=== PATIENT | male | born 1930 | race Caucasian/White ===

== ENCOUNTER 2019-01-19 10:08 | Observation (INO) | payer OTHER ==
[2019-01-19 11:07] LABS: BASO % 0.9 % (0-2.0); EOS % 1.5 % (0-4.5); HEMATOCRIT 39.7 % (35.4-49); HEMOGLOBIN 13.4 GM/dL (11.7-16.9); LYMPH % 19.1 % (8-40); MCH 30.5 pg (25.7-33.7); MCHC 33.7 g/dl (32.0-35.9); MEAN CELL VOLUME 90.4 fl (80-96); MEAN PLT VOLUME 8.3 fl (7.5-11.1); MONO % 10.4 % (3.8-10.2); NEUT % 68.1 % (42.8-82.8); PLATELET COUNT 237 K/MM3 (134-434); RBC 4.39 M/mm3 (4.00-5.60); RDW 14.1 % (11.9-15.9); WHITE BLOOD COUNT 7.3 K/mm3 (4.0-10.0)
[2019-01-19 11:23] LABS: PH,URINE 5.5 (5.0-8.0); URINE APPEARANCE CLEAR; URINE BILIRUBIN NEGATIVE (NEGATIVE); URINE COLOR YELLOW; URINE GLUCOSE (UA) NEGATIVE (NEGATIVE); URINE KETONE TRACE (NEGATIVE); URINE LEUK ESTERASE NEGATIVE (NEGATIVE); URINE NITRITE NEGATIVE (NEGATIVE); URINE PROTEIN NEGATIVE (NEGATIVE)
[2019-01-19 11:36] LABS: ALBUMIN 3.7 g/dl (3.4-5.0); ALK PHOS 75 U/L (45-117); ANION GAP 8 MMOL/L (8-16); BILIRUBIN,TOTAL 0.5 mg/dL (0.2-1); BLOOD UREA NITROGEN 27.8 mg/dL (7-18); CALCIUM 9.1 mg/dL (8.5-10.1); CHLORIDE 107 mmol/L (98-107); CO2 25 mmol/L (21-32); CREATININE 1.1 mg/dL (0.55-1.3); GLUCOSE,RANDOM 95 mg/dL (74-106); MAGNESIUM 2.1 mg/dL (1.8-2.4); POTASSIUM 3.9 mmol/L (3.5-5.1); SGOT/AST 19 U/L (15-37); SGPT/ALT 9 U/L (13-61); SODIUM 140 mmol/L (136-145); TOT PROT 7.1 g/dl (6.4-8.2)
--- NOTE | 2019-01-19 12:49 | EKG ---
Test Reason : Blood Pressure : / mmHG Vent. Rate : 068 BPM Atrial Rate : 068 BPM P-R Int : 216 ms QRS Dur : 092 ms QT Int : 390 ms P-R-T Axes : 018 -42 003 degrees QTc Int : 414 ms SINUS RHYTHM WITH 1ST DEGREE A-V BLOCK LEFT AXIS DEVIATION MINIMAL VOLTAGE CRITERIA FOR LVH, MAY BE NORMAL VARIANT ABNORMAL ECG NO PREVIOUS ECGS AVAILABLE Confirmed by SEBAS LEUNG, SHANTEL ([id number]) on 01/19/2019 12:49:36 PM Referred By: Confirmed By:SHANTEL MULLEN MD
--- NOTE | 2019-01-19 12:53 | PDOC ---
Documentation entered by Marcy Reynolds SCRIBE, acting as scribe for Loraine Wade MD. Loraine Wade MD: This documentation has been prepared by the Rodolfo moody Sammi, SCRIBE, under my direction and personally reviewed by me in its entirety. I confirm that the documentation accurately reflects all work, treatment, procedures, and medical decision making performed by me. History of Present Illness - General Chief Complaint: Chest Pain Stated Complaint: CHEST PAIN\DIZZINESS Time Seen by Provider: 01/19/19 10:35 History Source: Patient, Family Exam Limitations: Language Barrier - History of Present Illness Initial Comments: 01/19/19 12:34 The patient is an 88 year old thai speaking male, with a PMH of HTN, thyroid disease, and parkinsons, who presents to the emergency department for evaluation of ~3 hours of constant left sided pleuritic chest pain and increased lethargy. The pain began while he was cleaning at home but persisted after he sat down. The patients daughter states the patient was holding the left side of his chest and seemed very sleepy to her. She notes the patient complains the chest pain is worse on exertion, like picking up laundry or walking up a hill. She notes the patient is regularly active during the day. He has not taken anything for the pain as of yet. The patient has never experienced these symptoms before. Denies recent immobility or travel. Denies associated SOB, dizziness, nausea, vomiting, weakness/numbness, headache, abdominal pain, fevers, chills. Patients daughter notes the patients carvedilol-levodopa was increased 2 weeks ago when evaluated by his neurologist. He was also switched to rasagiline from another medication. She notes the patient saw his PCP 2 days ago and was advised to monitor his blood pressure as it was very low. He takes levothyroxine, valsartan, aspirin, rasagiline, and carvedilol- levodopa. PCP: Keely CHAVEZ ([facility]) Neuro: Brenton Past History - Past Medical History Allergies/Adverse Reactions: Allergies Allergy/AdvReac Type Severity Reaction Status Date / Time No Known Allergies Allergy Verified 01/19/19 10:14 COPD: No CHF: No HTN: Yes Thyroid Disease: Yes Other medical history: Parkinson's dis - Surgical History Abdominal Surgery: Yes (inguinal hernia repair) - Psycho Social/Smoking Cessation Hx Smoking History: Never smoked Information on smoking cessation initiated: No Hx Alcohol Use: No Drug/Substance Use Hx: No Review of Systems - Review of Systems Comments:: 01/19/19 12:36 GENERAL/CONSTITUTIONAL: +lethargic. No fever or chills. HEAD, EYES, EARS, NOSE AND THROAT: No change in vision. No ear pain or discharge. No sore throat. GASTROINTESTINAL: No nausea, vomiting, diarrhea or constipation. GENITOURINARY: No dysuria, frequency, or change in urination. CARDIOVASCULAR: +left sided chest pain. No shortness of breath. RESPIRATORY: No cough, wheezing, or hemoptysis. MUSCULOSKELETAL: No joint or muscle swelling or pain. No neck or back pain. SKIN: No rash NEUROLOGIC: No headache, vertigo, loss of consciousness, or change in strength/ sensation. *Physical Exam - Vital Signs Last Vital Signs Temp Pulse Resp BP Pulse Ox 97.8 F 76 19 100/63 96 01/19/19 14:15 01/19/19 14:15 01/19/19 14:15 01/19/19 14:15 01/19/19 10:11 - Physical Exam Comments: 01/19/19 12:36 GENERAL: Awake, alert, and fully oriented, in no acute distress EYES: PERRLA, EOMI, sclera anicteric, conjunctiva clear NECK: Normal ROM, supple, no lymphadenopathy, JVD, or masses LUNGS: Breath sounds equal, clear to auscultation bilaterally. No wheezes, and no crackles HEART: Regular rate and rhythm, normal S1 and S2, no murmurs, rubs or gallops ABDOMEN: Soft, nontender, normoactive bowel sounds. No guarding, no rebound. No masses EXTREMITIES: Normal range of motion, no edema. No clubbing or cyanosis. No cords , erythema, or tenderness NEUROLOGICAL: +masked facies. +soft voice. + left upper extremity resting tremor. Cranial nerves intact, 5/5 strength in all 4 extremities, normal sensation to light touch in all 4 extremities, normal gait SKIN: Warm, Dry, normal turgor, no rashes or lesions noted. Heart Score/ECG Review - History History: Moderately suspicious - Electrocardiogram EKG: Non specific repolarization disturbance - Age Age: >/= 65 - Risk Factors Risk Factors Heart Score: Yes Hx Hypertension Based on the list above the patient has:: 1-2 risk factors - Troponin Troponin: </= normal limit - Score Heart Score - Total: 5 #1 01/19/19 12:46 Twelve-lead EKG was performed and reviewed by me. Sinus rhythm with first- degree AV block. Rate 68. Left axis deviation. No ST elevations. Flipped T waves in lead III and T wave flattening in aVF. No previous EKGs to compare. ED Treatment Course - LABORATORY CBC & Chemistry Diagram: 01/19/19 10:50 01/19/19 10:50 - ADDITIONAL ORDERS Additional order review: Laboratory Results 01/19/19 01/19/19 01/19/19 10:50 10:50 10:50 PTT (Actin FS) 32.7 Sodium Potassium Chloride Carbon Dioxide Anion Gap BUN Creatinine Est GFR (CKD-EPI)AfAm Est GFR (CKD-EPI)NonAf Random Glucose Calcium Magnesium Total Bilirubin AST ALT Alkaline Phosphatase Troponin I B-Natriuretic Peptide 133.3 Total Protein Albumin Urine Color Yellow Urine Appearance Clear Urine pH 5.5 Ur Specific [place] 1.020 Urine Protein Negative Urine Glucose (UA) Negative Urine Ketones Trace H Urine Blood Negative Urine Nitrite Negative Urine Bilirubin Negative Urine Urobilinogen 1.0 Ur Leukocyte Esterase Negative 01/19/19 10:50 PTT (Actin FS) Sodium 140 Potassium 3.9 Chloride 107 Carbon Dioxide 25 Anion Gap 8 BUN 27.8 H Creatinine 1.1 Est GFR (CKD-EPI)AfAm 70.08 Est GFR (CKD-EPI)NonAf 60.46 Random Glucose 95 Calcium 9.1 Magnesium 2.1 Total Bilirubin 0.5 AST 19 ALT 9 L Alkaline Phosphatase 75 Troponin I < 0.02 B-Natriuretic Peptide Total Protein 7.1 Albumin 3.7 Urine Color Urine Appearance Urine pH Ur Specific [place] Urine Protein Urine Glucose (UA) Urine Ketones Urine Blood Urine Nitrite Urine Bilirubin Urine Urobilinogen Ur Leukocyte Esterase 01/19/19 10:50 RBC 4.39 MCV 90.4 MCHC 33.7 RDW 14.1 MPV 8.3 Neutrophils % 68.1 Lymphocytes % 19.1 Monocytes % 10.4 H Eosinophils % 1.5 Basophils % 0.9 - RADIOLOGY Radiology Studies Ordered: Category Date Time Status CHEST CTA [CT] Stat CT Scan 01/19/19 12:34 Completed CHEST X-RAY PORTABLE* [RAD] Stat Radiology 01/19/19 10:40 Completed Medical Decision Making - Medical Decision Making 01/19/19 12:47 88-year-old male with a history of hypertension, hypothyroidism, Parkinson's disease presents emergency department with 3 hours of left-sided pleuritic chest pain associated with lethargy. Differential includes ACS versus PE versus autonomic dysfunction versus musculoskeletal pain Heart score is 5. First troponin is negative, however due to moderate risk, patient will need telemetry observation. Will obtain CTA to rule out PE. 01/19/19 15:02 CTA negative for PE. Patient given full dose of aspirin. Will admit for ACS rule out. Case discussed with nurse practitioner Mirela. Patient accepted for admission to Dr. Segal's service. Case discussed in detail with admitting physician including history, physical exam and ancillary studies. Admitting physician has assumed care for the patient, will follow all pending diagnostics and will complete the evaluation and treatment. Discharge - Discharge Information Problems reviewed: Yes Clinical Impression/Diagnosis: Chest pain Condition: Stable - Follow up/Referral Referrals: Kathie Oliva FNP [Primary Care Provider] - - Patient Discharge Instructions - Post Discharge Activity
[2019-01-19] MEDS ORDERED: ASPIRIN 325 MG TABLET PO ONE (14:43)
[2019-01-19] MEDS ORDERED: ASPIRIN 325 MG ENTERIC COATED TABLET (FP) ONE (15:39)
--- NOTE | 2019-01-19 16:23 | HP ---
CHIEF COMPLAINT: left sided chest pain, persistent PCP: Keely CHAVEZ ([facility]) Neuro: Brenton HISTORY OF PRESENT ILLNESS: Patient is an 88 year old lithuanian speaking male from [place] who is accompanied by his daughter for persistent left sided chest pain. Per patient and daughter, patient comes to us for evaluation of persistent left sided pleurtic chest pain and increased lethargy. Patient was holding the left side of his chest today and complained to her that when he takes in a deep breath, the pain worsens. He is unable to fully take in a deep breath without feeling chest pressure. Chest pain is worse with any exertion and feels like "stabbing pain". At baseline, patient ambulates with a steady gait, has had no falls at home and denies trauma. He denies ever experiencing these pains before. He denies any recent immobility or travel. Denies shortness of breath, nausea or vomiting. Patient has Parkinsons disease and is under the care of a neurologist, patient' s carvedilol-levodopa was increased 2 weeks ago when evaluated by his neurologist. He was also switched to rasagiline. ER course was notable for: (1) negative CTA - no emboli, bilateral hilar adenopathy (2) negative troponin x 1 (3) HTN, thyroid disease, and parkinsons Recent Travel: [place] one year ago, no recent travel since PAST MEDICAL HISTORY: HTN, thyroid disease, and parkinsons Social History: Smoking: denies Alcohol: denies Drugs: denies Allergies No Known Allergies Allergy (Verified 01/19/19 10:14) PHYSICAL EXAMINATION Vital Signs - 24 hr 01/19/19 01/19/19 10:11 14:15 Temperature 97.6 F 97.8 F Pulse Rate 70 Pulse Rate [ 76 Apical] Respiratory 19 19 Rate Blood Pressure 90/48 L Blood Pressure 100/63 [Right Arm] O2 Sat by Pulse 96 Oximetry (%) GENERAL: Awake, alert, and fully oriented, in no acute distress. lithuanian speaking HEAD: Normal with no signs of trauma. EYES: Pupils equal, round and reactive to light, extraocular movements intact, sclera anicteric, conjunctiva clear. No lid lag. EARS, NOSE, THROAT: Ears normal, nares patent, oropharynx clear without exudates. Moist mucous membranes. NECK: Normal range of motion, supple without lymphadenopathy, JVD, or masses. LUNGS: mild wheezing of right lower lobe, rest of lung clear. left lung clear throughout lung field. HEART: Regular rate and rhythm ABDOMEN: Soft, nontender, not distended, normoactive bowel sounds, no guarding, no rebound, no masses. No hepatomegaly or splenomegaly. MUSCULOSKELETAL: Normal range of motion at all joints. No bony deformities or tenderness. No CVA tenderness. UPPER EXTREMITIES: No peripheral edema. resting tremor of left upper arm LOWER EXTREMITIES: No peripheral edema. NEUROLOGICAL: Normal speech. Normal gait. PSYCHIATRIC: Cooperative. Good eye contact. Appropriate mood and affect. SKIN: Warm, dry, normal turgor, no rashes or lesions noted, normal capillary refill. Laboratory Results - last 24 hr 01/19/19 01/19/19 01/19/19 10:50 10:50 10:50 WBC RBC Hgb Hct MCV MCH MCHC RDW Plt Count MPV Absolute Neuts (auto) Neutrophils % Lymphocytes % Monocytes % Eosinophils % Basophils % Nucleated RBC % PTT (Actin FS) Sodium 140 Potassium 3.9 Chloride 107 Carbon Dioxide 25 Anion Gap 8 BUN 27.8 H Creatinine 1.1 Est GFR (CKD-EPI)AfAm 70.08 Est GFR (CKD-EPI)NonAf 60.46 Random Glucose 95 Calcium 9.1 Magnesium 2.1 Total Bilirubin 0.5 AST 19 ALT 9 L Alkaline Phosphatase 75 Troponin I < 0.02 B-Natriuretic Peptide 133.3 Total Protein 7.1 Albumin 3.7 Urine Color Yellow Urine Appearance Clear Urine pH 5.5 Ur Specific [place] 1.020 Urine Protein Negative Urine Glucose (UA) Negative Urine Ketones Trace H Urine Blood Negative Urine Nitrite Negative Urine Bilirubin Negative Urine Urobilinogen 1.0 Ur Leukocyte Esterase Negative 01/19/19 01/19/19 10:50 10:50 WBC 7.3 RBC 4.39 Hgb 13.4 Hct 39.7 MCV 90.4 MCH 30.5 MCHC 33.7 RDW 14.1 Plt Count 237 MPV 8.3 Absolute Neuts (auto) 5.0 Neutrophils % 68.1 Lymphocytes % 19.1 Monocytes % 10.4 H Eosinophils % 1.5 Basophils % 0.9 Nucleated RBC % 0 PTT (Actin FS) 32.7 Sodium Potassium Chloride Carbon Dioxide Anion Gap BUN Creatinine Est GFR (CKD-EPI)AfAm Est GFR (CKD-EPI)NonAf Random Glucose Calcium Magnesium Total Bilirubin AST ALT Alkaline Phosphatase Troponin I B-Natriuretic Peptide Total Protein Albumin Urine Color Urine Appearance Urine pH Ur Specific [place] Urine Protein Urine Glucose (UA) Urine Ketones Urine Blood Urine Nitrite Urine Bilirubin Urine Urobilinogen Ur Leukocyte Esterase ASSESSMENT/PLAN: Family Medical History Family History: Unable to Obtain, Denies Problem List - Problem (1) Chest pain Assessment/Plan: rule out acs trend troponins monitor on tele asa 324 mg given in ED will continue asa 81mg cardiology consulted Code(s): R07.9 - CHEST PAIN, UNSPECIFIED (2) Shortness of breath Assessment/Plan: episode of shortness of breath at home, now resolved mild wheezing of right lower lobe CTA negative for PE hilar adenopathy noted, pulmonary consulted Code(s): R06.02 - SHORTNESS OF BREATH (3) Hypertension Assessment/Plan: continue home medications with parameters hold if systolic <100, heart rate less than 60 perform orthostatics Code(s): I10 - ESSENTIAL (PRIMARY) HYPERTENSION (4) Parkinsons disease Assessment/Plan: continue home sinemet TID Code(s): G20 - PARKINSON'S DISEASE (5) DVT prophylaxis Assessment/Plan: fen PO adequate monitor electrolytes physical therapy for report of weakness at home full code LOS likely <48 hrs, defer a/c Code(s): Z29.9 - ENCOUNTER FOR PROPHYLACTIC MEASURES, UNSPECIFIED Visit type - Emergency Visit Emergency Visit: Yes ED Registration Date: 01/19/19 Care time: The patient presented to the Emergency Department on the above date and was hospitalized for further evaluation of their emergent condition. - New Patient This patient is new to me today: Yes Date on this admission: 01/19/19 - Critical Care Critical Care patient: No
[2019-01-19 17:25] VITALS: BMI 28.1
[2019-01-19] MEDS ORDERED: PT OWN MED DRAWER 7, Y5N ONE (20:50)
[2019-01-19] MEDS: CARBIDOPA/LEVODOPA 25/250 TABLET (FP) PO SCH (21:02)
[2019-01-19] MEDS ORDERED: CARBIDOPA LEVODOPA PO SCH (22:00)
[2019-01-20 06:31] VITALS: PULSE 61; TEMP 98.7
[2019-01-20] MEDS ORDERED: LEVOTHYROXINE NA 100 MCG TABLET (FP) PO SCH (07:00)
[2019-01-20 08:02] LABS: ALBUMIN 3.3 g/dl (3.4-5.0); BILIRUBIN,TOTAL 0.7 mg/dL (0.2-1); BLOOD UREA NITROGEN 26.2 mg/dL (7-18); CALCIUM 8.9 mg/dL (8.5-10.1); MAGNESIUM 2.2 mg/dL (1.8-2.4); TOT PROT 6.4 g/dl (6.4-8.2)
[2019-01-20] MEDS: CARBIDOPA/LEVODOPA 25/250 TABLET (FP) PO SCH ×2 (08:19→12:47)
[2019-01-20 09:17] VITALS: BP 110/58
[2019-01-20] MEDS ORDERED: PT OWN MED DRAWER 7, Y5N ONE (09:19)
[2019-01-20] MEDS ORDERED: ASPIRIN COATED 81 MG TABLET.EC PO SCH (10:00)
[2019-01-20] MEDS ORDERED: RASAGILINE MESYLATE 1 MG PO SCH (10:00)
[2019-01-20] MEDS ORDERED: LOSARTAN POTASSIUM 50 MG TABLET (FP) PO SCH (10:00)
--- NOTE | 2019-01-20 10:04 | CON.CARD ---
Consult Consult Specialty:: Cardiology Referred by:: Ely Reason for Consultation:: chest pain - History of Present Illness Chief Complaint: chest pain History of Present Illness: 88 year old cymraes speaking male, with a PMH of HTN, thyroid disease, and parkinsons, who presents to the emergency department for evaluation of ~3 hours of constant left sided pleuritic chest pain and increased lethargy. The pain was left sided nonexertional, pleuritic and without associated symptoms. Troponin negative. CTA negative. Baseline exercise tolerance is poor. - History Source History Provided By: Patient, Medical Record - Alcohol/Substance Use Hx Alcohol Use: No - Smoking History Smoking history: Never smoked Have you smoked in the past 12 months: No Home Medications - Allergies Allergies/Adverse Reactions: Allergies Allergy/AdvReac Type Severity Reaction Status Date / Time No Known Allergies Allergy Verified 01/19/19 10:14 - Home Medications Home Medications: Ambulatory Orders Aspirin 81 mg PO DAILY 01/19/19 Carbidopa-Levodopa 25-250 Tab 25 - 250 mg PO TID 01/19/19 Levothyroxine [Synthroid -] 100 mg PO DAILY 01/19/19 Losartan Potassium 50 mg PO DAILY 01/19/19 Rasagiline Mesylate 1 mg PO DAILY 01/19/19 Vital Signs: Vital Signs Temperature 98.7 F 01/20/19 09:16 Pulse Rate 61 01/20/19 09:16 Respiratory Rate 20 01/20/19 09:16 Blood Pressure 110/58 L 01/20/19 09:16 O2 Sat by Pulse Oximetry (%) 94 L 01/20/19 09:00 Constitutional: Yes: No Distress, Calm Eyes: Yes: Conjunctiva Clear, EOM Intact HENT: Yes: Atraumatic, Normocephalic Neck: Yes: Trachea Midline Respiratory: Yes: CTA Bilaterally Gastrointestinal: Yes: Normal Bowel Sounds, Soft Cardiovascular: Yes: Regular Rate and Rhythm JVD: No Carotid Bruit: No PMI: Non-Displaced Heart Sounds: Yes: S1, S2 Murmur: Yes: Systolic Murmur, Grade 2 Extremities: Yes: WNL Edema: No Peripheral Pulses WNL: Yes - Other Data Labs, Other Data: CBC, BMP 01/20/19 05:55 Troponin, BNP 01/19/19 01/19/19 01/19/19 10:50 10:50 19:15 Troponin I < 0.02 < 0.02 B-Natriuretic Peptide 133.3 01/20/19 00:01 Troponin I < 0.02 B-Natriuretic Peptide Troponin, BNP 01/19/19 01/19/19 01/19/19 10:50 10:50 19:15 Troponin I < 0.02 < 0.02 B-Natriuretic Peptide 133.3 01/20/19 00:01 Troponin I < 0.02 B-Natriuretic Peptide Imaging - Results Cat Scan: Report Reviewed (no pe) EKG: Report Reviewed (nsr lad lvh) Assessment/Plan 88 year old cymraes speaking male, with a PMH of HTN, thyroid disease, and parkinsons, who presents to the emergency department for evaluation of ~3 hours of constant left sided pleuritic chest pain and increased lethargy. Troponin negative. CTA negative. Plan: -no need for inpatient ischemia workup -pain is atypical and he is a poor cath candidate -echo -observe 24 hrs and dc for op fu.
--- NOTE | 2019-01-20 13:17 | CON.PULM ---
Consult Consult Specialty:: PULM/CCM Referred by:: Hospitalist Reason for Consultation:: SOB - History of Present Illness Chief Complaint: SOB History of Present Illness: 88 M, remote smoking history, HTN, thyroid disease, and parkinsons. Admitted via the ER due to 3 hours of left sided pleuritic chest discomfort and SOB. Apparently he was also noted to be lethargic. No travel history or sick contacts. Minimal dry cough. No hemoptysis or night sweats. CTA: no PE emphysematous changes / non-specific mediastianal adenopathy. / chronic appearing changes at the bases Left > Right. Patient has not had a CT chest here previously at [facility] and he does not recall having a CT as an outpatient. 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 No clear occupational exposure history. There is no history that is consistent with [facility]. - History Source History Provided By: Patient, Medical Record Limitations to Obtaining History: Language Barrier - Past Medical History Pulmonary: No: Asthma, Bronchitis, Cancer, COPD, O2 Dependent, Pneumonia, Previously Intubated, Pulmonary Embolus, Pulmonary Fibrosis, Sleep Apnea - Alcohol/Substance Use Hx Alcohol Use: No - Smoking History Smoking history: Never smoked Have you smoked in the past 12 months: No Home Medications - Allergies Allergies/Adverse Reactions: Allergies Allergy/AdvReac Type Severity Reaction Status Date / Time No Known Allergies Allergy Verified 01/19/19 10:14 - Home Medications Home Medications: Ambulatory Orders Aspirin 81 mg PO DAILY 01/19/19 Carbidopa-Levodopa 25-250 Tab 25 - 250 mg PO TID 01/19/19 Levothyroxine [Synthroid -] 100 mg PO DAILY 01/19/19 Losartan Potassium 50 mg PO DAILY 01/19/19 Rasagiline Mesylate 1 mg PO DAILY 01/19/19 Review of Systems - Review of Systems Constitutional: reports: Lethargy, Malaise. denies: Chills, Fever, Night Sweats Eyes: reports: No Symptoms HENT: reports: No Symptoms Neck: reports: No Symptoms Cardiovascular: reports: Shortness of Breath. denies: Chest Pain, Edema, Palpitations Respiratory: reports: Cough, Exercise Intolerance, SOB, SOB on Exertion. denies : Hemoptysis, Orthopnea, PND, Snoring, Wheezing Gastrointestinal: reports: No Symptoms Genitourinary: reports: No Symptoms Breasts: reports: No Symptoms Reported Musculoskeletal: reports: No Symptoms Integumentary: reports: No Symptoms Neurological: reports: Confusion Endocrine: reports: No Symptoms Hematology/Lymphatic: reports: No Symptoms Psychiatric: reports: No Symptoms Physical Exam Vital Sings: Vital Signs Temperature 98.7 F 01/20/19 09:16 Pulse Rate 61 01/20/19 09:16 Respiratory Rate 20 01/20/19 09:16 Blood Pressure 110/58 L 01/20/19 09:16 O2 Sat by Pulse Oximetry (%) 94 L 01/20/19 09:00 Constitutional: Yes: No Distress, Calm Eyes: Yes: Conjunctiva Clear, EOM Intact HENT: Yes: Atraumatic, Normocephalic Neck: Yes: Supple, Trachea Midline Cardiovascular: Yes: Regular Rate and Rhythm Respiratory: Yes: Diminished. No: Accessory Muscle Use, Poor Air Entry, Rales, Rhonchi, SOB, SOB on Exertion, Stridor, Tachypnea, Wheezes ...Inspection: Yes: WNL ...Clubbing: No Gastrointestinal: Yes: Normal Bowel Sounds, Soft Renal/: Yes: WNL Musculoskeletal: Yes: WNL Extremities: Yes: WNL Edema: No Peripheral Pulses WNL: Yes Integumentary: Yes: WNL Neurological: Yes: WNL, Alert, Oriented ...Motor Strength: WNL Psychiatric: Yes: WNL, Alert, Oriented Labs: CBC, BMP 01/20/19 00:01 01/20/19 05:55 Imaging - Results Chest X-ray: Report Reviewed, Image Reviewed Cat Scan: Report Reviewed, Image Reviewed Problem List - Problems (1) Mediastinal lymphadenopathy Code(s): R59.0 - LOCALIZED ENLARGED LYMPH NODES (2) Chest pain Code(s): R07.9 - CHEST PAIN, UNSPECIFIED (3) Hypertension Code(s): I10 - ESSENTIAL (PRIMARY) HYPERTENSION (4) Parkinsons disease Code(s): G20 - PARKINSON'S DISEASE (5) Shortness of breath Code(s): R06.02 - SHORTNESS OF BREATH (6) Emphysema lung Code(s): J43.9 - EMPHYSEMA, UNSPECIFIED (7) Scarring of lung Code(s): J98.4 - OTHER DISORDERS OF LUNG Assessment/Plan Cardiac workup per Cardiology O2 as needed Monitor off ABX Outpatient PFTs Can follow non-specific mediastinal adenopathy as an outpatient. Would first check if he had previous imaging of the chest with his outpatient doctors No smoking Will follow Thank you. Dr Cazares
--- NOTE | 2019-01-20 15:17 | ECHO ---
Name: MARINAANDREW FINE Exam:Adult Echocardiogram Study Date: 01/20/2019 01:50 PM Age: 88 yrs Reason For Study: Chest pain Height: 62 in Weight: 154 lb BSA: 1.7 m2 MMode/2D Measurements & Calculations IVSd: 1.1 cm Ao root diam: 3.2 cm LVIDd: 3.6 cm LA dimension: 2.8 cm LVIDs: 2.5 cm LVPWd: 1.2 cm LVPWs: 1.3 cm EDV(Teich): 55.9 ml ESV(Teich): 21.4 ml LVOT diam: 1.8 cm Doppler Measurements & Calculations MV E max dada: 61.2 cm/sec Ao V2 max: 148.0 cm/sec MV A max dada: 120.9 cm/sec Ao max P.8 mmHg MV E/A: 0.51 MV dec time: 0.14 sec JOHN(V,D): 1.8 cm2 LV V1 max P.0 mmHg TR max dada: 247.7 cm/sec LV V1 max: 99.7 cm/sec TR max P.9 mmHg PA V2 max: 98.9 cm/sec Med Peak E' Dada: 5.7 cm/sec PA max P.9 mmHg Med E/e': 10.7 Lat Peak E' Dada: 7.3 cm/sec Lat E/e': 8.3 Procedure A complete two-dimensional transthoracic echocardiogram was performed (2D, M-mode, Doppler and color flow Doppler). Left Ventricle The left ventricular size, thickness and function are normal. The left ventricular ejection fraction is normal. Ejection Fraction = 60-65%. The left ventricular wall motion is normal. Right Ventricle The right ventricle is normal in size and function. Atria Normal left and right atrial size and function. Mitral Valve There is no mitral regurgitation noted. Tricuspid Valve There is trace tricuspid regurgitation. There was insufficient TR detected to calculate RV systolic p ressure. Aortic Valve The aortic valve is trileaflet. No hemodynamically significant valvular aortic stenosis. No aortic regurgitation is present. Pulmonic Valve There is no pulmonic valvular regurgitation. Great Vessels The aortic root is normal size. Pericardium/Pleura There is no pericardial effusion. Interpretation Summary The left ventricular size, thickness and function are normal The right ventricle is normal in size and function. There is trace tricuspid regurgitation. MD Emigdio García 01/20/2019 03:17 PM
--- NOTE | 2019-01-20 15:58 | DS ---
Physical Exam: SUBJECTIVE: Patient seen and examined OBJECTIVE: Vital Signs Period Temp Pulse Resp BP Sys/Mckeon Pulse Ox Last 24 Hr 98 F-98.7 F 60-66 20-20 99-135/52-63 94-98 PHYSICAL EXAM GENERAL: The patient is awake, alert, and fully oriented, in no acute distress. HEAD: Normal with no signs of trauma. EYES: PERRL, extraocular movements intact, sclera anicteric, conjunctiva clear. ENT: Ears normal, nares patent, oropharynx clear without exudates, moist mucous membranes. NECK: Trachea midline, full range of motion, supple. LUNGS: Breath sounds equal, clear to auscultation bilaterally, no wheezes, no crackles, no accessory muscle use. HEART: Regular rate and rhythm, S1, S2 without murmur, rub or gallop. ABDOMEN: Soft, nontender, nondistended, normoactive bowel sounds, no guarding, no rebound, no hepatosplenomegaly, no masses. EXTREMITIES: 2+ pulses, warm, well-perfused, no edema. NEUROLOGICAL: Cranial nerves II through XII grossly intact. Normal speech, gait not observed. PSYCH: Normal mood, normal affect. SKIN: Warm, dry, normal turgor, no rashes or lesions noted. LABS Laboratory Results - last 24 hr 01/19/19 01/20/19 01/20/19 19:15 00:01 00:01 WBC Cancelled Corrected WBC (auto) Cancelled RBC Cancelled Hgb Cancelled Hct Cancelled MCV Cancelled MCH Cancelled MCHC Cancelled RDW Cancelled Plt Count Cancelled MPV Cancelled Absolute Neuts (auto) Cancelled Neutrophils % Cancelled Lymphocytes % Cancelled Monocytes % Cancelled Eosinophils % Cancelled Basophils % Cancelled Nucleated RBC % Cancelled Platelet Estimate Cancelled Platelet Comment Cancelled Sodium Potassium Chloride Carbon Dioxide Anion Gap BUN Creatinine Est GFR (CKD-EPI)AfAm Est GFR (CKD-EPI)NonAf Random Glucose Hemoglobin A1c % Calcium Magnesium Total Bilirubin AST ALT Alkaline Phosphatase Troponin I < 0.02 < 0.02 Total Protein Albumin Triglycerides Cholesterol Total LDL Cholesterol HDL Cholesterol TSH 01/20/19 01/20/19 05:55 05:55 WBC Corrected WBC (auto) RBC Hgb Hct MCV MCH MCHC RDW Plt Count MPV Absolute Neuts (auto) Neutrophils % Lymphocytes % Monocytes % Eosinophils % Basophils % Nucleated RBC % Platelet Estimate Platelet Comment Sodium 142 Potassium 4.0 Chloride 107 Carbon Dioxide 28 Anion Gap 7 L BUN 26.2 H Creatinine 1.0 Est GFR (CKD-EPI)AfAm 78.64 Est GFR (CKD-EPI)NonAf 67.85 Random Glucose 83 Hemoglobin A1c % 5.2 Calcium 8.9 Magnesium 2.2 Total Bilirubin 0.7 AST 15 ALT 9 L Alkaline Phosphatase 65 Troponin I Total Protein 6.4 Albumin 3.3 L Triglycerides 93 Cholesterol 185 Total LDL Cholesterol 118 H HDL Cholesterol 56 TSH 2.16 HOSPITAL COURSE: Date of Admission:01/19/19 Date of Discharge: 01/20/19 Discharge Summary Problems reviewed: Yes Reason For Visit: CHEST PAIN Current Active Problems Chest pain (Acute) DVT prophylaxis (Acute) Emphysema lung (Acute) Hypertension (Acute) Mediastinal lymphadenopathy (Acute) Parkinsons disease (Acute) Scarring of lung (Acute) Shortness of breath (Acute) Condition: Stable - Instructions Diet, Activity, Other Instructions: Mr. Dany Pace You were admitted for chest pain and the workup is negative. We will be sending you home today. We found that you have a non-specific mediastinal adenopathy that we saw in your Chest CT. Please take the imaging with you and show it to your primary care doctor. You can also see Dr. Berman or another librarian specialist as an outpatient. Thank you for allowing us to care for you. Continue all the medications as you have been taking at home. Questions? Call me with questions Tammy Herrera NP [facility] [phone] Referrals: Kathie Oliva FNP [Primary Care Provider] - Disposition: HOME - Home Medications Comprehensive Discharge Medication List: Ambulatory Orders Aspirin 81 mg PO DAILY 01/19/19 Carbidopa-Levodopa 25-250 Tab 25 - 250 mg PO TID 01/19/19 Levothyroxine [Synthroid -] 100 mg PO DAILY 01/19/19 Losartan Potassium 50 mg PO DAILY 01/19/19 Rasagiline Mesylate 1 mg PO DAILY 01/19/19 Problem List - Problems (1) Chest pain Code(s): R07.9 - CHEST PAIN, UNSPECIFIED (2) Shortness of breath Code(s): R06.02 - SHORTNESS OF BREATH (3) Hypertension Code(s): I10 - ESSENTIAL (PRIMARY) HYPERTENSION (4) Parkinsons disease Code(s): G20 - PARKINSON'S DISEASE (5) DVT prophylaxis Code(s): Z29.9 - ENCOUNTER FOR PROPHYLACTIC MEASURES, UNSPECIFIED
== END 2019-01-20 16:29 | disposition home or self-care (01) ==
LOC: JER 10:08 → JERBED 12:34 → J4W 16:21
PROVIDERS: ADMIT Internal Medicine; ATTEND Nurse Practitioner Family
DX: R07.89 Other chest pain (principal); R06.02 Shortness of breath; I10 Essential (primary) hypertension; I44.0 Atrioventricular block, first degree; G20 Parkinson's disease; E03.9 Hypothyroidism, unspecified; Z29.8 Encounter for other specified prophylactic measures; R59.0 Localized enlarged lymph nodes; J43.9 Emphysema, unspecified; J98.4 Other disorders of lung; Z79.82 Long term (current) use of aspirin
CPT/HCPCS: 36415; 71045-TC-FY; 71275-TC; 80053; 80061; 81003; 83036; 83721; 83735; 83880; 84443; 84484; 85025; 85730; 87086; 93005; 93010; 93306-TC; 97116-GP; 97161-GP; 99285-25; G0378

== ENCOUNTER 2020-12-26 19:50 | Emergency (ER) | payer OTHER ==
[2020-12-26 20:13] VITALS: BMI 29.7
[2020-12-26 21:43] LABS: BASO % 0.5 % (0-2.0); EOS % 1.2 % (0-4.5); HEMATOCRIT 37.5 % (35.4-49); HEMOGLOBIN 12.9 GM/dL (11.7-16.9); LYMPH % 31.5 % (8-40); MCH 31.8 pg (25.7-33.7); MCHC 34.4 g/dl (32.0-35.9); MEAN CELL VOLUME 92.3 fl (80-96); MEAN PLT VOLUME 7.1 fl (7.5-11.1); MONO % 11.1 % (3.8-10.2); NEUT % 55.7 % (42.8-82.8); PLATELET COUNT 258 10^3/uL (134-434); RBC 4.06 M/mm3 (4.00-5.60); RDW 15.3 % (11.9-15.9); WHITE BLOOD COUNT 7.1 K/mm3 (4.0-10.0)
[2020-12-26 21:51] LABS: INR 0.99 (0.83-1.09); PROTHROMBIN TIME (PATIENT) 12.2 SEC (9.7-13.0)
[2020-12-26 21:54] LABS: ACTIVATED PTT 26.7 SECONDS (25.2-36.5)
[2020-12-26 22:07] LABS: CHLORIDE 111 mmol/L (98-107); SODIUM 141 mmol/L (136-145)
[2020-12-26 22:09] LABS: ALBUMIN 3.5 g/dl (3.4-5.0); ANION GAP 6 MMOL/L (8-16); BLOOD UREA NITROGEN 36.3 mg/dL (7-18); CALCIUM 8.7 mg/dL (8.5-10.1); CO2 24 mmol/L (21-32); GLUCOSE,RANDOM 93 mg/dL (74-106)
[2020-12-26 22:12] LABS: SGOT/AST 13 U/L (15-37); SGPT/ALT 14 U/L (13-61)
[2020-12-26 22:14] LABS: BILIRUBIN,TOTAL 0.5 mg/dL (0.2-1); TOT PROT 6.9 g/dl (6.4-8.2)
[2020-12-26 22:15] LABS: ALK PHOS 49 U/L (45-117)
[2020-12-26 22:17] LABS: N-TERMINAL BNP 146.2 pg/ml (5-450)
[2020-12-27 00:35] VITALS: BP 154/70; PULSE 63; TEMP 97.9
== END 2020-12-27 00:34 | disposition home or self-care (01) ==
LOC: JER 19:50
DX: R06.00 Dyspnea, unspecified (principal)
CPT/HCPCS: 36415; 71045-TC-FY; 71275-TC; 80053; 82550; 83605; 83880; 84484; 85025; 85610; 85730; 87040; 87804; 93005; 93010; 99285-25; C9803; Q9967; U0003; U0005

== ENCOUNTER 2021-03-27 21:21 | Inpatient (IN) | payer OTHER ==
[2021-03-28] MEDS ORDERED: DEXAMETHASONE SOD PHOSPHATE 10 MG/1 ML VIAL IVPUSH ONE (00:50)
[2021-03-28] MEDS ORDERED: ALBUTEROL SO4 2.5/IPRATROPIUM 0.5 INH SOL 3 ML VIAL.NEB. NEB ONE (01:41)
[2021-03-28] MEDS ORDERED: DEXAMETHASONE SOD PHOSPHATE 10 MG/1 ML VIAL ONE (01:41)
[2021-03-28] MEDS: ALBUTEROL SO4 2.5/IPRATROPIUM 0.5 INH SOL 3 ML VIAL.NEB. NEB SCH ×3 (02:02→02:43)
[2021-03-28 02:09] LABS: HEMATOCRIT 43.4 % (35.4-49); HEMOGLOBIN 14.6 GM/dL (11.7-16.9); MCH 31.1 pg (25.7-33.7); MCHC 33.6 g/dl (32.0-35.9); MEAN CELL VOLUME 92.5 fl (80-96); MEAN PLT VOLUME 8.1 fl (7.5-11.1); PLATELET COUNT 233 10^3/uL (134-434); RDW 14.8 % (11.9-15.9); WHITE BLOOD COUNT 9.3 K/mm3 (4.0-10.0)
[2021-03-28 02:14] LABS: INR 1.15 (0.83-1.09); PROTHROMBIN TIME (PATIENT) 13.5 SEC (9.7-13.0)
[2021-03-28 02:14] LABS: VENOUS BASE EXCESS -7.6 mmol/L (-2-2); VENOUS O2 SATURATION 89.5 % (70-80); VENOUS PCO2 24.6 mmHg (38-52); VENOUS PH 7.406 (7.310-7.410)
[2021-03-28 02:17] LABS: ACTIVATED PTT 30.8 SECONDS (25.2-36.5)
[2021-03-28 02:29] LABS: ALBUMIN 3.1 g/dl (3.4-5.0); BLOOD UREA NITROGEN 40.5 mg/dL (7-18)
[2021-03-28 02:31] LABS: BILIRUBIN,DIRECT 0.3 mg/dL (0.0-0.2)
[2021-03-28 02:32] LABS: CREATININE 1.1 mg/dL (0.55-1.3); LDH 829 U/L (87-246)
[2021-03-28 02:34] LABS: BILIRUBIN,TOTAL 0.8 mg/dL (0.2-1); TOT PROT 7.3 g/dl (6.4-8.2)
[2021-03-28 02:37] LABS: N-TERMINAL BNP 337.3 pg/ml (5-450)
[2021-03-28] MEDS ORDERED: morphine CARPU-JECT 2 MG/1 ML DISP.SYRIN IVPUSH PRN (03:27)
[2021-03-28] MEDS ORDERED: morphine CARPU-JECT 2 MG/1 ML DISP.SYRIN IVPUSH ONE (03:27)
[2021-03-28] MEDS ORDERED: DEXMEDETOMIDINE IN 0.9 % NACL 400 MCG/100 ML VIAL IVPB SCH (03:30)
[2021-03-28 03:54] LABS: LACTIC ACID 2.2 mmol/L (0.4-2.0)
[2021-03-28] MEDS ORDERED: MIDAZOLAM HCL 5 MG/1 ML Single Dose Vial IVPUSH ONE ×3 (04:08→05:48)
[2021-03-28] MEDS ORDERED: MIDAZOLAM HCL 2 MG/2 ML SINGLE DOSE VIAL ONE ×2 (04:10→04:37)
[2021-03-28] MEDS ORDERED: RAPID SEQUENCE INTUBATION KIT NR ONE (04:18)
[2021-03-28] MEDS ORDERED: SUCCINYLCHOLINE CHLORIDE 200 MG/10 ML VIAL IVPUSH ONE (04:19)
[2021-03-28] MEDS ORDERED: DEXAMETHASONE SOD PHOSPHATE 4 MG/1 ML VIAL IVPUSH ONE (04:25)
[2021-03-28] MEDS ORDERED: DEXAMETHASONE SOD PHOSPHATE 20 MG/5 ML VIAL IVPB SCH (04:30)
[2021-03-28] MEDS ORDERED: MIDAZOLAM IN 0.9 % SOD.CHLORID 1 MG/1 ML PLAST..BAG ONE (04:37)
[2021-03-28] MEDS: MIDAZOLAM IN 0.9 % SOD.CHLORID 100 MG/100 ML PLAST..BAG IVPB SCH ×2 (05:10→19:30)
[2021-03-28] MEDS ORDERED: SUCCINYLCHOLINE CHLORIDE 200 MG/10 ML VIAL ONE (05:15)
[2021-03-28] MEDS ORDERED: SODIUM CHLORIDE 0.9% 500 ML INFUS.BAG IV ONE (05:46)
[2021-03-28] MEDS ORDERED: ROCURONIUM BROMIDE 50 MG/5 ML VIAL IV ONE (05:52)
[2021-03-28] MEDS ORDERED: FENTANYL NS IVPB 500 MCG/100 ML BAG IVPB ONE (05:59)
[2021-03-28] MEDS ORDERED: ROCURONIUM BROMIDE 100 MG in DEXTROSE 5%-WATER - 90 ML IVPB SCH (06:00)
[2021-03-28] MEDS ORDERED: VECURONIUM BROMIDE 100 MG/100 ML BAG IVPB SCH (06:00)
[2021-03-28] MEDS: CARBIDOPA/LEVODOPA 25/250 TABLET (FP) PO SCH ×3 (07:00→21:55)
[2021-03-28] MEDS: ROCURONIUM BROMIDE 500 MG/300 ML BAG IVPB SCH (07:00)
[2021-03-28 07:46] LABS: HEMATOCRIT 43.5 % (35.4-49); MCH 30.7 pg (25.7-33.7); MCHC 32.2 g/dl (32.0-35.9); MEAN CELL VOLUME 95.6 fl (80-96); MEAN PLT VOLUME 8.9 fl (7.5-11.1); PLATELET COUNT 255 10^3/uL (134-434); RBC 4.55 M/mm3 (4.00-5.60); WHITE BLOOD COUNT 11.6 K/mm3 (4.0-10.0)
[2021-03-28 07:56] LABS: ARTERIAL BLD GAS O2 SATURATION 89.8 % (95-98); ARTERIAL BLOOD GAS PO2 73.9 mmHg (80-100)
[2021-03-28 07:58] LABS: ALLENS TEST POSITIVE
[2021-03-28 07:59] LABS: VENT MODE A/C; VENT RATE 18
[2021-03-28 08:02] LABS: CHLORIDE 111 mmol/L (98-107); SODIUM 142 mmol/L (136-145)
[2021-03-28 08:04] LABS: CALCIUM 8.2 mg/dL (8.5-10.1)
[2021-03-28 08:04] LABS: ARTERIAL BLOOD GAS pH 7.134 (7.350-7.450)
[2021-03-28 08:05] LABS: ALBUMIN 2.8 g/dl (3.4-5.0); ANION GAP 12 MMOL/L (8-16); BLOOD UREA NITROGEN 45.3 mg/dL (7-18); CO2 19 mmol/L (21-32); GLUCOSE,RANDOM 185 mg/dL (74-106)
[2021-03-28 08:06] LABS: MAGNESIUM 2.3 mg/dL (1.8-2.4)
[2021-03-28 08:08] LABS: CREATININE 2.1 mg/dL (0.55-1.3); PHOSPHOROUS 8.6 mg/dL (2.5-4.9); SGOT/AST 145 U/L (15-37); SGPT/ALT 71 U/L (13-61)
[2021-03-28 08:10] LABS: BILIRUBIN,TOTAL 0.7 mg/dL (0.2-1); TOT PROT 6.9 g/dl (6.4-8.2)
[2021-03-28 08:11] LABS: ALK PHOS 81 U/L (45-117)
[2021-03-28] MEDS ORDERED: SODIUM CHLORIDE 0.45% 1,000 ML IV SCH (09:00)
[2021-03-28] MEDS ORDERED: MUPIROCIN 2% TOPICAL OINTMENT FOR DECOLONIZATION NS SCH (10:00)
[2021-03-28] MEDS ORDERED: ENOXAPARIN NA (PORCINE) 40 MG/0.4 ML DISP.SYRIN SQ SCH (10:00)
[2021-03-28] MEDS ORDERED: PNEUMOC 13-VAL CONJ-DIP CRM/PF 0.5 ML DISP.SYRIN IM ONE (10:00)
[2021-03-28] MEDS: FENTANYL NS IVPB 500 MCG/100 ML BAG IVPB SCH ×3 (10:23→19:35)
[2021-03-28] MEDS: PANTOPRAZOLE SODIUM 40 MG VIAL IVPUSH SCH (10:28)
[2021-03-28] MEDS ORDERED: NOREPINEPHRINE BITARTRATE 4 MG/4 ML ML IV ONE ×2 (10:35→10:45)
[2021-03-28] MEDS: NOREPINEPHRINE D5W PREMIX 16,000 MCG/500 ML BAG IVPB SCH (10:39)
[2021-03-28] MEDS ORDERED: HEPARIN NA (PORCINE) 5,000 UNITS/ML 1ML VIAL IVPUSH ONE (11:03)
[2021-03-28] MEDS ORDERED: HEPARIN NA (PORCINE) 5,000 UNITS/ML 1ML VIAL IVPUSH PRN ×2 (11:03)
[2021-03-28] MEDS ORDERED: HEPARIN INFUSION - 25,000 UNITS/500 ML INFUS.BAG IVPB SCH (11:15)
[2021-03-28] MEDS ORDERED: VANCOMYCIN/WATER 1,250 MG/250 ML BAG IVPB SCH ×2 (11:30→11:45)
[2021-03-28] MEDS ORDERED: PIPERACILLIN/TAZOB 2.25 GM 2.25 GM in DEXTROSE 5%-WATER - 50 ML IVPB SCH (11:45)
[2021-03-28] MEDS ORDERED: VANCOMYCIN/WATER BAGS 1,250 MG/250 ML BAG IVPB SCH (12:00)
[2021-03-28 12:01] LABS: ARTERIAL BLD GAS O2 SATURATION 93.2 % (95-98); ARTERIAL BLOOD GAS BASE EXCESS -11.6 mmol/L (-2-2); ARTERIAL BLOOD GAS PO2 83.1 mmHg (80-100)
[2021-03-28 12:01] LABS: ANISOCYTOSIS 2+; MACROCYTOSIS 0; PLATELET ESTIMATE NORMAL; TEAR DROP CELLS 1+
[2021-03-28 12:04] LABS: ALLENS TEST POSITIVE
[2021-03-28 12:07] LABS: VENT MODE V+A/C; VENT RATE 28
[2021-03-28 12:10] LABS: ARTERIAL BLOOD GAS pH 7.166 (7.350-7.450)
[2021-03-28] MEDS ORDERED: DEXTROSE 5%-WATER - 50 ML IVPB ONE ×2 (12:30→17:55)
[2021-03-28] MEDS ORDERED: PIPERACILLIN/TAZOBACTAM 2.25 GM VIAL IVPB ONE (12:30)
[2021-03-28] MEDS: SODIUM BICARBONATE 8.4% 50 MEQ/50 ML DISP.SYRIN IVPUSH SCH ×2 (12:35→18:06)
[2021-03-28] MEDS ORDERED: REMDESIVIR 200 MG in SODIUM CHLORIDE 250 ML IVPB ONE (13:00)
[2021-03-28] MEDS ORDERED: PT OWN MED DRAWER 7, Y5N ONE (13:23)
[2021-03-28] MEDS: MUPIROCIN 2% TOPICAL OINTMENT FOR DECOLONIZATION NS SCH ×2 (13:25→21:55)
[2021-03-28 15:52] LABS: ARTERIAL BLD GAS O2 SATURATION 92.8 % (95-98); ARTERIAL BLOOD GAS BASE EXCESS -8.8 mmol/L (-2-2); ARTERIAL BLOOD GAS PO2 75.9 mmHg (80-100); ARTERIAL BLOOD GAS pH 7.237 (7.350-7.450)
[2021-03-28 16:54] LABS: ANION GAP 10 MMOL/L (8-16); CALCIUM 7.5 mg/dL (8.5-10.1); CHLORIDE 115 mmol/L (98-107); CO2 19 mmol/L (21-32); CREATININE 1.3 mg/dL (0.55-1.3); GLUCOSE,RANDOM 149 mg/dL (74-106); SODIUM 144 mmol/L (136-145)
[2021-03-28] MEDS ORDERED: PIPERACILLIN/TAZOBACTAM 3.375 GM VIAL IVPB ONE (17:55)
[2021-03-28] MEDS: PIPERACILLIN/TAZOB 3.375 GM 3.375 GM in DEXTROSE 5%-WATER - 50 ML IVPB SCH (18:05)
[2021-03-28] MEDS ORDERED: ASPIRIN 325 MG TABLET NGT SCH (19:15)
[2021-03-28] MEDS: CHLORHEXIDINE GLUCONATE 4% CLEANSER FOR DECOLONIZATION TP SCH (21:55)
[2021-03-28] MEDS ORDERED: CHLORHEXIDINE GLUCONATE 4% CLEANSER FOR DECOLONIZATION TP SCH (22:00)
[2021-03-29] MEDS: SODIUM BICARBONATE 8.4% 50 MEQ/50 ML DISP.SYRIN IVPUSH SCH ×2 (00:16→06:18)
[2021-03-29] MEDS ORDERED: PIPERACILLIN/TAZOBACTAM 3.375 GM VIAL IVPB ONE ×4 (00:42→23:47)
[2021-03-29] MEDS ORDERED: DEXTROSE 5%-WATER - 50 ML IVPB ONE ×4 (00:43→23:48)
[2021-03-29] MEDS: PIPERACILLIN/TAZOB 3.375 GM 3.375 GM in DEXTROSE 5%-WATER - 50 ML IVPB SCH ×3 (02:16→17:35)
[2021-03-29] MEDS: CARBIDOPA/LEVODOPA 25/250 TABLET (FP) PO SCH ×3 (06:14→21:06)
[2021-03-29] MEDS: ROCURONIUM BROMIDE 500 MG/300 ML BAG IVPB SCH (06:17)
[2021-03-29 06:36] LABS: ARTERIAL BLOOD GAS PO2 163.8 mmHg (80-100); ARTERIAL BLOOD GAS pH 7.337 (7.350-7.450)
[2021-03-29 06:57] LABS: ALLENS TEST POSITIVE; VENT MODE A/C
[2021-03-29 06:58] LABS: VENT RATE 28
[2021-03-29] MEDS: NOREPINEPHRINE D5W PREMIX 16,000 MCG/500 ML BAG IVPB SCH (07:00)
[2021-03-29 07:53] LABS: BASO % 0.1 % (0-2.0); HEMOGLOBIN 13.2 GM/dL (11.7-16.9); LYMPH % 5.3 % (8-40); MCH 30.6 pg (25.7-33.7); MCHC 32.9 g/dl (32.0-35.9); MEAN CELL VOLUME 93.1 fl (80-96); MEAN PLT VOLUME 8.6 fl (7.5-11.1); MONO % 4.2 % (3.8-10.2); NEUT % 90.4 % (42.8-82.8); PLATELET COUNT 260 10^3/uL (134-434); RDW 15.2 % (11.9-15.9); WHITE BLOOD COUNT 14.4 K/mm3 (4.0-10.0)
[2021-03-29 08:23] LABS: BLOOD UREA NITROGEN 28.6 mg/dL (7-18); CALCIUM 7.6 mg/dL (8.5-10.1); MAGNESIUM 1.9 mg/dL (1.8-2.4)
[2021-03-29 08:26] LABS: PHOSPHOROUS 2.6 mg/dL (2.5-4.9)
[2021-03-29 08:28] LABS: BILIRUBIN,TOTAL 1.2 mg/dL (0.2-1); TOT PROT 5.6 g/dl (6.4-8.2)
[2021-03-29 08:33] LABS: ALBUMIN 1.9 g/dl (3.4-5.0)
[2021-03-29] MEDS ORDERED: DEXAMETHASONE SOD PHOSPHATE 20 MG/5 ML VIAL IVPB SCH (10:00)
[2021-03-29] MEDS ORDERED: DEXAMETHASONE SOD PHOSPHATE 10 MG/1 ML VIAL IVPB SCH (10:00)
[2021-03-29] MEDS: ASPIRIN 81 MG CHEWABLE TABLETS NGT SCH (10:01)
[2021-03-29] MEDS: PANTOPRAZOLE SODIUM 40 MG VIAL IVPUSH SCH (10:01)
[2021-03-29] MEDS: MUPIROCIN 2% TOPICAL OINTMENT FOR DECOLONIZATION NS SCH ×2 (10:01→21:05)
[2021-03-29] MEDS: FLUDROCORTISONE ACETATE 0.1 MG TABLET (FP) PO SCH (10:01)
[2021-03-29] MEDS ORDERED: MAGNESIUM 1GM/D5W 100ML - 100 ML IVPB IVPB ONE (10:15)
[2021-03-29] MEDS: ENOXAPARIN NA (PORCINE) 80 MG/0.8 ML DISP.SYRIN SQ SCH ×2 (10:42→21:06)
[2021-03-29] MEDS: FENTANYL NS IVPB 500 MCG/100 ML BAG IVPB SCH ×2 (11:00→16:00)
[2021-03-29] MEDS: REMDESIVIR 100 MG in SODIUM CHLORIDE 250 ML IVPB SCH (13:55)
[2021-03-29] MEDS ORDERED: PT OWN MED DRAWER 7, Y5N ONE (15:24)
[2021-03-29] MEDS: MIDAZOLAM IN 0.9 % SOD.CHLORID 100 MG/100 ML PLAST..BAG IVPB SCH (18:19)
[2021-03-29] MEDS: CHLORHEXIDINE GLUCONATE 4% CLEANSER FOR DECOLONIZATION TP SCH (21:05)
[2021-03-30] MEDS: PIPERACILLIN/TAZOB 3.375 GM 3.375 GM in DEXTROSE 5%-WATER - 50 ML IVPB SCH ×3 (00:59→18:24)
[2021-03-30] MEDS: MIDAZOLAM IN 0.9 % SOD.CHLORID 100 MG/100 ML PLAST..BAG IVPB SCH (06:08)
[2021-03-30] MEDS: FENTANYL NS IVPB 500 MCG/100 ML BAG IVPB SCH (06:09)
[2021-03-30] MEDS: CARBIDOPA/LEVODOPA 25/250 TABLET (FP) PO SCH ×3 (06:09→22:14)
[2021-03-30 06:46] LABS: EPI CELLS >36 /uL (0-25.1); HYALINE CASTS 47 /uL (0-3.1); PH,URINE 5.5 (5.0-8.0); URINE APPEARANCE TURBID; URINE BILIRUBIN NEGATIVE (NEGATIVE); URINE COLOR DK YELLOW; URINE GLUCOSE (UA) NEGATIVE (NEGATIVE); URINE KETONE NEGATIVE (NEGATIVE); URINE LEUK ESTERASE NEGATIVE (NEGATIVE); URINE NITRITE NEGATIVE (NEGATIVE); URINE PROTEIN 2+ (NEGATIVE)
[2021-03-30 06:59] LABS: HEMATOCRIT 41.2 % (35.4-49); MCH 31.1 pg (25.7-33.7); MEAN CELL VOLUME 91.5 fl (80-96); MEAN PLT VOLUME 8.6 fl (7.5-11.1); PLATELET COUNT 269 10^3/uL (134-434); RBC 4.51 M/mm3 (4.00-5.60); RDW 15.2 % (11.9-15.9)
[2021-03-30 07:24] LABS: BLOOD UREA NITROGEN 26.4 mg/dL (7-18); CALCIUM 7.4 mg/dL (8.5-10.1); MAGNESIUM 2.1 mg/dL (1.8-2.4)
[2021-03-30 07:27] LABS: CREATININE 0.8 mg/dL (0.55-1.3)
[2021-03-30 07:29] LABS: BILIRUBIN,TOTAL 1.2 mg/dL (0.2-1); TOT PROT 4.9 g/dl (6.4-8.2)
[2021-03-30 07:33] LABS: ALBUMIN 1.5 g/dl (3.4-5.0)
[2021-03-30] MEDS ORDERED: DEXTROSE 5%-WATER - 50 ML IVPB ONE ×3 (08:39→23:20)
[2021-03-30] MEDS ORDERED: PIPERACILLIN/TAZOBACTAM 3.375 GM VIAL IVPB ONE ×3 (08:39→23:20)
[2021-03-30 08:47] LABS: URINE RBC 55.3 /uL (0-23.9)
[2021-03-30 08:48] LABS: URINE BACTERIA MANY /uL (0-1359); URINE WBC 2030.6 /uL (0-25.8)
[2021-03-30 08:50] LABS: URINE CRYSTALS SEE COMMEN /hpf
[2021-03-30] MEDS: ENOXAPARIN NA (PORCINE) 80 MG/0.8 ML DISP.SYRIN SQ SCH ×2 (09:02→22:13)
[2021-03-30] MEDS: PANTOPRAZOLE SODIUM 40 MG VIAL IVPUSH SCH (09:02)
[2021-03-30] MEDS: DEXAMETHASONE SOD PHOSPHATE 10 MG/1 ML VIAL IVPUSH SCH (09:03)
[2021-03-30] MEDS: MUPIROCIN 2% TOPICAL OINTMENT FOR DECOLONIZATION NS SCH ×2 (09:03→22:13)
[2021-03-30] MEDS: FLUDROCORTISONE ACETATE 0.1 MG TABLET (FP) PO SCH (09:03)
[2021-03-30] MEDS: ASPIRIN 81 MG CHEWABLE TABLETS NGT SCH (09:03)
[2021-03-30 11:40] LABS: ANISOCYTOSIS 0; HELMET CELLS 0; HOWELL-JOLLY BODIES 0; MACROCYTOSIS 0; OVALOCYTE 0; PLATELET ESTIMATE NORMAL; ROULEAU 0; SICKELED CELLS 0; TARGET CELLS 0; TEAR DROP CELLS 0; TOXIC GRANULATION 0
[2021-03-30] MEDS: REMDESIVIR 100 MG in SODIUM CHLORIDE 250 ML IVPB SCH (12:38)
[2021-03-30 13:18] LABS: HIV INTERPRETATION NEGATIVE (NEGATIVE)
[2021-03-30] MEDS: NOREPINEPHRINE D5W PREMIX 16,000 MCG/500 ML BAG IVPB SCH (14:39)
[2021-03-30] MEDS ORDERED: PT OWN MED DRAWER 7, Y5N ONE (14:44)
[2021-03-30] MEDS ORDERED: ALBUMIN HUMAN 25% 100 ML VIAL IVPB SCH (20:00)
[2021-03-30] MEDS ORDERED: ALBUMIN HUMAN 25% 12.5 GM/50 ML VIAL IVPB ONE (20:00)
[2021-03-30] MEDS: CHLORHEXIDINE GLUCONATE 4% CLEANSER FOR DECOLONIZATION TP SCH (22:13)
[2021-03-31] MEDS: PIPERACILLIN/TAZOB 3.375 GM 3.375 GM in DEXTROSE 5%-WATER - 50 ML IVPB SCH ×3 (02:13→18:52)
[2021-03-31] MEDS: FENTANYL NS IVPB 500 MCG/100 ML BAG IVPB SCH (05:14)
[2021-03-31] MEDS: CARBIDOPA/LEVODOPA 25/250 TABLET (FP) PO SCH ×3 (05:14→21:33)
[2021-03-31] MEDS ORDERED: MIDAZOLAM IN 0.9 % SOD.CHLORID 1 MG/1 ML PLAST..BAG ONE ×2 (05:21→18:10)
[2021-03-31 07:14] LABS: ARTERIAL BLD GAS O2 SATURATION 91.6 % (95-98); ARTERIAL BLOOD GAS BASE EXCESS -1.6 mmol/L (-2-2); ARTERIAL BLOOD GAS PO2 60.5 mmHg (80-100); ARTERIAL BLOOD GAS pH 7.411 (7.350-7.450)
[2021-03-31 07:15] LABS: HEMATOCRIT 39.2 % (35.4-49); HEMOGLOBIN 13.2 GM/dL (11.7-16.9); LYMPH % 4.9 % (8-40); MCH 30.9 pg (25.7-33.7); MCHC 33.6 g/dl (32.0-35.9); MEAN CELL VOLUME 91.9 fl (80-96); MEAN PLT VOLUME 8.9 fl (7.5-11.1); MONO % 5.3 % (3.8-10.2); NEUT % 89.8 % (42.8-82.8); PLATELET COUNT 283 10^3/uL (134-434); RBC 4.26 M/mm3 (4.00-5.60); RDW 15.4 % (11.9-15.9); WHITE BLOOD COUNT 14.9 K/mm3 (4.0-10.0)
[2021-03-31 07:40] LABS: VENT MODE V-A/C; VENT RATE 28
[2021-03-31 08:25] LABS: CALCIUM 7.6 mg/dL (8.5-10.1)
[2021-03-31 08:26] LABS: BLOOD UREA NITROGEN 37.7 mg/dL (7-18); MAGNESIUM 2.1 mg/dL (1.8-2.4)
[2021-03-31 08:29] LABS: CREATININE 1.2 mg/dL (0.55-1.3)
[2021-03-31 08:30] LABS: BILIRUBIN,TOTAL 1.9 mg/dL (0.2-1)
[2021-03-31 08:32] LABS: ALBUMIN 1.8 g/dl (3.4-5.0)
[2021-03-31] MEDS ORDERED: CLOPIDOGREL BISULFATE 300 MG TABLET PO ONE (08:52)
[2021-03-31] MEDS ORDERED: PIPERACILLIN/TAZOBACTAM 3.375 GM VIAL IVPB ONE ×3 (09:07→23:56)
[2021-03-31] MEDS ORDERED: DEXTROSE 5%-WATER - 50 ML IVPB ONE ×3 (09:07→23:56)
[2021-03-31] MEDS ORDERED: CLOPIDOGREL BISULFATE 75 MG TABLET (FP) PO SCH (10:00)
[2021-03-31] MEDS: PANTOPRAZOLE SODIUM 40 MG VIAL IVPUSH SCH (10:16)
[2021-03-31] MEDS: DEXAMETHASONE SOD PHOSPHATE 10 MG/1 ML VIAL IVPUSH SCH (10:17)
[2021-03-31] MEDS: FLUDROCORTISONE ACETATE 0.1 MG TABLET (FP) PO SCH (10:17)
[2021-03-31] MEDS: ASPIRIN 81 MG CHEWABLE TABLETS NGT SCH (10:17)
[2021-03-31] MEDS: MUPIROCIN 2% TOPICAL OINTMENT FOR DECOLONIZATION NS SCH ×2 (10:18→21:32)
[2021-03-31] MEDS ORDERED: PT OWN MED DRAWER 7, Y5N ONE (11:27)
[2021-03-31] MEDS: ENOXAPARIN NA (PORCINE) 80 MG/0.8 ML DISP.SYRIN SQ SCH ×2 (12:05→21:33)
[2021-03-31] MEDS: NOREPINEPHRINE D5W PREMIX 16,000 MCG/500 ML BAG IVPB SCH (12:07)
[2021-03-31] MEDS: REMDESIVIR 100 MG in SODIUM CHLORIDE 250 ML IVPB SCH (13:36)
[2021-03-31] MEDS ORDERED: FUROSEMIDE 40 MG/4 ML INJECTABLE VIAL IVPUSH ONE (16:08)
[2021-03-31] MEDS ORDERED: FUROSEMIDE 40 MG/4 ML INJECTABLE VIAL ONE (16:11)
[2021-03-31] MEDS ORDERED: MIDAZOLAM HCL 2 MG/2 ML SINGLE DOSE VIAL IVPUSH ONE (18:20)
[2021-03-31] MEDS: CHLORHEXIDINE GLUCONATE 4% CLEANSER FOR DECOLONIZATION TP SCH (21:32)
[2021-03-31] MEDS: MIDAZOLAM IN 0.9 % SOD.CHLORID 100 MG/100 ML PLAST..BAG IVPB SCH (21:32)
[2021-03-31] MEDS: ATORVASTATIN CA 20 MG TABLET (FP) PO SCH (21:33)
[2021-04-01] MEDS: PIPERACILLIN/TAZOB 3.375 GM 3.375 GM in DEXTROSE 5%-WATER - 50 ML IVPB SCH ×3 (01:40→18:10)
[2021-04-01] MEDS: CARBIDOPA/LEVODOPA 25/250 TABLET (FP) PO SCH ×3 (05:57→21:11)
[2021-04-01] MEDS: FENTANYL NS IVPB 500 MCG/100 ML BAG IVPB SCH ×3 (05:57→18:28)
[2021-04-01 06:42] LABS: ARTERIAL BLD GAS O2 SATURATION 95.6 % (95-98); ARTERIAL BLOOD GAS BASE EXCESS 3.8 mmol/L (-2-2); ARTERIAL BLOOD GAS PO2 73.1 mmHg (80-100); ARTERIAL BLOOD GAS pH 7.474 (7.350-7.450)
[2021-04-01 06:59] LABS: ALLENS TEST POSITIVE
[2021-04-01 07:00] LABS: VENT MODE A/C; VENT RATE 28
[2021-04-01 07:06] LABS: HEMATOCRIT 37.9 % (35.4-49); HEMOGLOBIN 12.4 GM/dL (11.7-16.9); MCH 30.2 pg (25.7-33.7); MCHC 32.6 g/dl (32.0-35.9); MEAN CELL VOLUME 92.7 fl (80-96); MEAN PLT VOLUME 9.2 fl (7.5-11.1); PLATELET COUNT 287 10^3/uL (134-434); RBC 4.09 M/mm3 (4.00-5.60); RDW 15.2 % (11.9-15.9)
[2021-04-01 07:20] LABS: ALBUMIN 1.8 g/dl (3.4-5.0); BLOOD UREA NITROGEN 39.9 mg/dL (7-18); CALCIUM 7.4 mg/dL (8.5-10.1); MAGNESIUM 2.2 mg/dL (1.8-2.4)
[2021-04-01 07:23] LABS: CREATININE 1.1 mg/dL (0.55-1.3); PHOSPHOROUS 1.8 mg/dL (2.5-4.9)
[2021-04-01 07:24] LABS: BILIRUBIN,TOTAL 0.8 mg/dL (0.2-1)
[2021-04-01] MEDS ORDERED: DEXTROSE 5%-WATER - 50 ML IVPB ONE ×2 (08:47→16:53)
[2021-04-01] MEDS ORDERED: PIPERACILLIN/TAZOBACTAM 3.375 GM VIAL IVPB ONE ×2 (08:47→16:53)
[2021-04-01] MEDS: PANTOPRAZOLE SODIUM 40 MG VIAL IVPUSH SCH (09:01)
[2021-04-01] MEDS: DEXAMETHASONE SOD PHOSPHATE 10 MG/1 ML VIAL IVPUSH SCH (09:01)
[2021-04-01] MEDS: CLOPIDOGREL BISULFATE 75 MG TABLET (FP) PO SCH (09:01)
[2021-04-01] MEDS: ENOXAPARIN NA (PORCINE) 80 MG/0.8 ML DISP.SYRIN SQ SCH ×2 (09:01→21:11)
[2021-04-01] MEDS: ASPIRIN 81 MG CHEWABLE TABLETS NGT SCH (09:01)
[2021-04-01] MEDS: FLUDROCORTISONE ACETATE 0.1 MG TABLET (FP) PO SCH (09:01)
[2021-04-01] MEDS: MUPIROCIN 2% TOPICAL OINTMENT FOR DECOLONIZATION NS SCH ×2 (09:01→21:11)
[2021-04-01 10:26] LABS: ANISOCYTOSIS 2+; MACROCYTOSIS 0; PLATELET ESTIMATE NORMAL
[2021-04-01] MEDS: NOREPINEPHRINE D5W PREMIX 16,000 MCG/500 ML BAG IVPB SCH (10:30)
[2021-04-01] MEDS: REMDESIVIR 100 MG in SODIUM CHLORIDE 250 ML IVPB SCH (12:37)
[2021-04-01] MEDS: MIDAZOLAM IN 0.9 % SOD.CHLORID 100 MG/100 ML PLAST..BAG IVPB SCH ×2 (13:00→20:17)
[2021-04-01] MEDS: ATORVASTATIN CA 20 MG TABLET (FP) PO SCH (21:11)
[2021-04-01] MEDS: CHLORHEXIDINE GLUCONATE 4% CLEANSER FOR DECOLONIZATION TP SCH (21:11)
[2021-04-02] MEDS ORDERED: DEXTROSE 5%-WATER - 50 ML IVPB ONE ×3 (00:11→17:17)
[2021-04-02] MEDS ORDERED: PIPERACILLIN/TAZOBACTAM 3.375 GM VIAL IVPB ONE ×3 (00:11→17:17)
[2021-04-02] MEDS: PIPERACILLIN/TAZOB 3.375 GM 3.375 GM in DEXTROSE 5%-WATER - 50 ML IVPB SCH ×3 (02:39→17:30)
[2021-04-02] MEDS: CARBIDOPA/LEVODOPA 25/250 TABLET (FP) PO SCH ×3 (06:08→21:42)
[2021-04-02] MEDS: FENTANYL NS IVPB 500 MCG/100 ML BAG IVPB SCH ×2 (06:08→15:04)
[2021-04-02 06:57] LABS: HEMATOCRIT 36.2 % (35.4-49); HEMOGLOBIN 12.4 GM/dL (11.7-16.9); MCH 31.2 pg (25.7-33.7); MCHC 34.2 g/dl (32.0-35.9); MEAN CELL VOLUME 91.2 fl (80-96); MEAN PLT VOLUME 8.8 fl (7.5-11.1); PLATELET COUNT 279 10^3/uL (134-434); RBC 3.97 M/mm3 (4.00-5.60); RDW 14.9 % (11.9-15.9); WHITE BLOOD COUNT 16.3 K/mm3 (4.0-10.0)
[2021-04-02 07:16] LABS: CHLORIDE 114 mmol/L (98-107); SODIUM 146 mmol/L (136-145)
[2021-04-02 07:24] LABS: ALBUMIN 1.5 g/dl (3.4-5.0); CREATININE 0.8 mg/dL (0.55-1.3); SGOT/AST 52 U/L (15-37)
[2021-04-02 07:25] LABS: GLUCOSE,RANDOM 181 mg/dL (74-106)
[2021-04-02 07:26] LABS: ANION GAP 6 MMOL/L (8-16); BILIRUBIN,TOTAL 0.5 mg/dL (0.2-1); BLOOD UREA NITROGEN 35.6 mg/dL (7-18); CO2 26 mmol/L (21-32); MAGNESIUM 1.9 mg/dL (1.8-2.4); TOT PROT 4.2 g/dl (6.4-8.2)
[2021-04-02 07:27] LABS: ALK PHOS 85 U/L (45-117); SGPT/ALT 62 U/L (13-61)
[2021-04-02 07:28] LABS: PHOSPHOROUS 1.4 mg/dL (2.5-4.9)
[2021-04-02 07:38] LABS: CALCIUM 6.4 mg/dL (8.5-10.1)
[2021-04-02 09:27] LABS: ANISOCYTOSIS 0; HELMET CELLS 0; HOWELL-JOLLY BODIES 0; MACROCYTOSIS 0; OVALOCYTE 0; PLATELET ESTIMATE NORMAL; ROULEAU 0; SICKELED CELLS 0; TARGET CELLS 0; TEAR DROP CELLS 0; TOXIC GRANULATION 0
[2021-04-02] MEDS: PANTOPRAZOLE SODIUM 40 MG VIAL IVPUSH SCH (10:20)
[2021-04-02] MEDS: ASPIRIN 81 MG CHEWABLE TABLETS NGT SCH (10:21)
[2021-04-02] MEDS: FLUDROCORTISONE ACETATE 0.1 MG TABLET (FP) PO SCH (10:21)
[2021-04-02] MEDS: DEXAMETHASONE SOD PHOSPHATE 10 MG/1 ML VIAL IVPUSH SCH (10:21)
[2021-04-02] MEDS: CLOPIDOGREL BISULFATE 75 MG TABLET (FP) PO SCH (10:21)
[2021-04-02] MEDS: ENOXAPARIN NA (PORCINE) 80 MG/0.8 ML DISP.SYRIN SQ SCH ×2 (10:21→21:42)
[2021-04-02] MEDS ORDERED: CALCIUM GLUCONATE 10% - 1,000 MG/10 ML VIAL IVPB ONE (10:45)
[2021-04-02] MEDS ORDERED: POTASSIUM PHOSPHATE 15 MM in DEXTROSE 5%-WATER - 100 ML IVPB ONE (11:15)
[2021-04-02] MEDS: MIDAZOLAM IN 0.9 % SOD.CHLORID 100 MG/100 ML PLAST..BAG IVPB SCH (12:54)
[2021-04-02] MEDS ORDERED: PT OWN MED DRAWER 7, Y5N ONE (13:48)
[2021-04-02] MEDS ORDERED: POTASSIUM PHOSPHATE 30 MM in DEXTROSE 5%-WATER - 250 ML IVPB ONE (15:50)
[2021-04-02] MEDS: NOREPINEPHRINE D5W PREMIX 16,000 MCG/500 ML BAG IVPB SCH (17:30)
[2021-04-02] MEDS: CHLORHEXIDINE GLUCONATE 4% CLEANSER FOR DECOLONIZATION TP SCH (21:41)
[2021-04-02] MEDS: ATORVASTATIN CA 20 MG TABLET (FP) PO SCH (21:42)
[2021-04-03] MEDS ORDERED: DEXTROSE 5%-WATER - 50 ML IVPB ONE ×3 (02:39→16:50)
[2021-04-03] MEDS ORDERED: PIPERACILLIN/TAZOBACTAM 3.375 GM VIAL IVPB ONE ×4 (02:39→17:50)
[2021-04-03] MEDS: PIPERACILLIN/TAZOB 3.375 GM 3.375 GM in DEXTROSE 5%-WATER - 50 ML IVPB SCH ×3 (02:45→17:46)
[2021-04-03] MEDS: NOREPINEPHRINE BITARTRATE 16,000 MCG in DEXTROSE 5%-WATER - 16,000 MCG/500 ML INFUS.BAG IVPB SCH (05:48)
[2021-04-03] MEDS: CARBIDOPA/LEVODOPA 25/250 TABLET (FP) PO SCH ×2 (05:49→14:53)
[2021-04-03 07:26] LABS: HEMATOCRIT 38.2 % (35.4-49); HEMOGLOBIN 12.3 GM/dL (11.7-16.9); MCHC 32.3 g/dl (32.0-35.9); MEAN CELL VOLUME 92.9 fl (80-96); MEAN PLT VOLUME 9.3 fl (7.5-11.1); PLATELET COUNT 321 10^3/uL (134-434); RBC 4.11 M/mm3 (4.00-5.60); RDW 15.4 % (11.9-15.9); WHITE BLOOD COUNT 18.3 K/mm3 (4.0-10.0)
[2021-04-03 07:39] LABS: ALBUMIN 1.7 g/dl (3.4-5.0); BLOOD UREA NITROGEN 43.7 mg/dL (7-18); MAGNESIUM 2.1 mg/dL (1.8-2.4)
[2021-04-03 07:42] LABS: CREATININE 0.8 mg/dL (0.55-1.3); PHOSPHOROUS 2.2 mg/dL (2.5-4.9)
[2021-04-03 07:44] LABS: BILIRUBIN,TOTAL 0.6 mg/dL (0.2-1)
[2021-04-03 08:00] LABS: CALCIUM 7.6 mg/dL (8.5-10.1)
[2021-04-03] MEDS: FLUDROCORTISONE ACETATE 0.1 MG TABLET (FP) PO SCH (09:56)
[2021-04-03] MEDS: ASPIRIN 81 MG CHEWABLE TABLETS NGT SCH (09:56)
[2021-04-03] MEDS: ENOXAPARIN NA (PORCINE) 80 MG/0.8 ML DISP.SYRIN SQ SCH ×2 (09:56→21:22)
[2021-04-03] MEDS: CLOPIDOGREL BISULFATE 75 MG TABLET (FP) PO SCH (09:56)
[2021-04-03] MEDS: PANTOPRAZOLE SODIUM 40 MG VIAL IVPUSH SCH (09:56)
[2021-04-03 10:45] LABS: ANISOCYTOSIS 0; MACROCYTOSIS 0; PLATELET ESTIMATE NORMAL
[2021-04-03] MEDS: PROPOFOL 1,000,000 MCG/100 ML VIAL IVPB SCH (14:34)
[2021-04-03] MEDS ORDERED: FLUDROCORTISONE ACETATE 0.1 MG TABLET (FP) GT SCH (15:18)
[2021-04-03 16:33] VITALS: BMI 28.7
[2021-04-03] MEDS: AMINO ACIDS/PROTEIN HYDROLYS 30 ML LIQUID.PKT PO SCH (17:52)
[2021-04-03] MEDS: CARBIDOPA/LEVODOPA 25/250 TABLET (FP) GT SCH (21:21)
[2021-04-03] MEDS: CHLORHEXIDINE GLUCONATE 4% CLEANSER FOR DECOLONIZATION TP SCH (21:21)
[2021-04-03] MEDS: ATORVASTATIN CA 20 MG TABLET (FP) NGT SCH (21:21)
[2021-04-04] MEDS ORDERED: DEXTROSE 5%-WATER - 50 ML IVPB ONE ×2 (01:48→09:27)
[2021-04-04] MEDS ORDERED: PIPERACILLIN/TAZOBACTAM 3.375 GM VIAL IVPB ONE ×2 (01:48→09:27)
[2021-04-04] MEDS: PIPERACILLIN/TAZOB 3.375 GM 3.375 GM in DEXTROSE 5%-WATER - 50 ML IVPB SCH ×2 (01:53→10:59)
[2021-04-04] MEDS: CARBIDOPA/LEVODOPA 25/250 TABLET (FP) GT SCH ×3 (05:46→21:36)
[2021-04-04] MEDS: PROPOFOL 1,000,000 MCG/100 ML VIAL IVPB SCH ×3 (05:47→21:00)
[2021-04-04 07:39] LABS: HEMATOCRIT 36.5 % (35.4-49); HEMOGLOBIN 11.6 GM/dL (11.7-16.9); MCH 29.8 pg (25.7-33.7); MCHC 31.7 g/dl (32.0-35.9); MEAN PLT VOLUME 9.6 fl (7.5-11.1); PLATELET COUNT 300 10^3/uL (134-434); RBC 3.89 M/mm3 (4.00-5.60); RDW 15.7 % (11.9-15.9)
[2021-04-04 07:50] LABS: CALCIUM 7.8 mg/dL (8.5-10.1)
[2021-04-04 07:51] LABS: ALBUMIN 1.5 g/dl (3.4-5.0); BLOOD UREA NITROGEN 47.6 mg/dL (7-18); MAGNESIUM 2.4 mg/dL (1.8-2.4)
[2021-04-04 07:54] LABS: CREATININE 0.9 mg/dL (0.55-1.3); PHOSPHOROUS 2.8 mg/dL (2.5-4.9)
[2021-04-04 07:55] LABS: BILIRUBIN,TOTAL 0.4 mg/dL (0.2-1)
[2021-04-04 07:56] LABS: TOT PROT 4.7 g/dl (6.4-8.2)
[2021-04-04 09:49] LABS: ANISOCYTOSIS 2+; MACROCYTOSIS 0; OVALOCYTE 1+; PLATELET ESTIMATE NORMAL; TARGET CELLS 1+; TEAR DROP CELLS 1+
[2021-04-04] MEDS: ENOXAPARIN NA (PORCINE) 80 MG/0.8 ML DISP.SYRIN SQ SCH ×2 (09:50→21:35)
[2021-04-04] MEDS: CLOPIDOGREL BISULFATE 75 MG TABLET (FP) GT SCH (09:51)
[2021-04-04] MEDS: ASPIRIN 81 MG CHEWABLE TABLETS NGT SCH (09:51)
[2021-04-04] MEDS: AMINO ACIDS/PROTEIN HYDROLYS 30 ML LIQUID.PKT PO SCH ×2 (09:51→17:36)
[2021-04-04] MEDS: PANTOPRAZOLE SODIUM 40 MG VIAL IVPUSH SCH (09:52)
[2021-04-04] MEDS: NOREPINEPHRINE BITARTRATE 16,000 MCG in DEXTROSE 5%-WATER - 16,000 MCG/500 ML INFUS.BAG IVPB SCH (09:52)
[2021-04-04] MEDS ORDERED: DEXAMETHASONE SOD PHOSPHATE 10 MG/1 ML VIAL IVPB SCH (10:00)
[2021-04-04] MEDS: LACTOBACILLUS ACIDOPHILUS 1 TABLET PO SCH (12:52)
[2021-04-04] MEDS: DEXAMETHASONE SOD PHOSPHATE 10 MG/1 ML VIAL IVPUSH SCH (13:36)
[2021-04-04] MEDS ORDERED: DOCUSATE NA 100 MG/10 ML UNIT-DOSE CUPS NGT PRN (18:58)
[2021-04-04] MEDS: CHLORHEXIDINE GLUCONATE 4% CLEANSER FOR DECOLONIZATION TP SCH (21:33)
[2021-04-04] MEDS: POLYETHYLENE GLYCOL (HEALTHYLAX) 3350 17 GM PACKET NGT SCH (21:33)
[2021-04-04] MEDS: ATORVASTATIN CA 20 MG TABLET (FP) NGT SCH (21:35)
[2021-04-05 05:47] LABS: ARTERIAL BLD GAS O2 SATURATION 96.5 % (95-98); ARTERIAL BLOOD GAS BASE EXCESS 3.3 mmol/L (-2-2); ARTERIAL BLOOD GAS PO2 88.1 mmHg (80-100); ARTERIAL BLOOD GAS pH 7.389 (7.350-7.450)
[2021-04-05 05:49] LABS: ALLENS TEST POSITIVE; VENT MODE A/C; VENT RATE 28
[2021-04-05] MEDS: CARBIDOPA/LEVODOPA 25/250 TABLET (FP) GT SCH ×3 (06:16→22:20)
[2021-04-05] MEDS: DOCUSATE NA 100 MG/10 ML UNIT-DOSE CUPS NGT SCH (06:52)
[2021-04-05 07:48] LABS: HEMATOCRIT 33.6 % (35.4-49); HEMOGLOBIN 11.2 GM/dL (11.7-16.9); MCH 31.1 pg (25.7-33.7); MCHC 33.3 g/dl (32.0-35.9); MEAN CELL VOLUME 93.5 fl (80-96); MEAN PLT VOLUME 9.4 fl (7.5-11.1); PLATELET COUNT 231 10^3/uL (134-434); RBC 3.59 M/mm3 (4.00-5.60); RDW 15.7 % (11.9-15.9); WHITE BLOOD COUNT 22.1 K/mm3 (4.0-10.0)
[2021-04-05 08:55] LABS: ANISOCYTOSIS 0; HELMET CELLS 0; HOWELL-JOLLY BODIES 0; MACROCYTOSIS 0; OVALOCYTE 0; PLATELET ESTIMATE NORMAL; ROULEAU 0; SICKELED CELLS 0; TARGET CELLS 0; TEAR DROP CELLS 0; TOXIC GRANULATION 0
[2021-04-05 09:00] LABS: ALBUMIN 1.3 g/dl (3.4-5.0); BILIRUBIN,TOTAL 0.6 mg/dL (0.2-1); BLOOD UREA NITROGEN 53.1 mg/dL (7-18); CALCIUM 7.9 mg/dL (8.5-10.1); CREATININE 0.9 mg/dL (0.55-1.3); MAGNESIUM 2.6 mg/dL (1.8-2.4); PHOSPHOROUS 3.3 mg/dL (2.5-4.9); TOT PROT 4.7 g/dl (6.4-8.2)
[2021-04-05] MEDS: PROPOFOL 1,000,000 MCG/100 ML VIAL IVPB SCH ×2 (09:37→17:26)
[2021-04-05] MEDS: AMINO ACIDS/PROTEIN HYDROLYS 30 ML LIQUID.PKT PO SCH ×2 (09:38→16:47)
[2021-04-05] MEDS: PANTOPRAZOLE SODIUM 40 MG VIAL IVPUSH SCH (09:38)
[2021-04-05] MEDS: ENOXAPARIN NA (PORCINE) 80 MG/0.8 ML DISP.SYRIN SQ SCH ×2 (09:38→22:19)
[2021-04-05] MEDS: CLOPIDOGREL BISULFATE 75 MG TABLET (FP) GT SCH (09:38)
[2021-04-05] MEDS: DEXAMETHASONE SOD PHOSPHATE 10 MG/1 ML VIAL IVPUSH SCH (09:38)
[2021-04-05] MEDS: POLYETHYLENE GLYCOL (HEALTHYLAX) 3350 17 GM PACKET NGT SCH (09:38)
[2021-04-05] MEDS: LACTOBACILLUS ACIDOPHILUS 1 TABLET PO SCH (09:39)
[2021-04-05] MEDS: ASPIRIN 81 MG CHEWABLE TABLETS NGT SCH (09:39)
[2021-04-05] MEDS: LEVOTHYROXINE SODIUM 100 MCG VIAL IVPUSH SCH (09:40)
[2021-04-05] MEDS: ATORVASTATIN CA 20 MG TABLET (FP) NGT SCH (22:20)
[2021-04-05] MEDS: CHLORHEXIDINE GLUCONATE 4% CLEANSER FOR DECOLONIZATION TP SCH (22:20)
[2021-04-06] MEDS: PROPOFOL 1,000,000 MCG/100 ML VIAL IVPB SCH ×3 (02:17→14:30)
[2021-04-06] MEDS: CARBIDOPA/LEVODOPA 25/250 TABLET (FP) GT SCH ×3 (06:03→21:37)
[2021-04-06 08:07] LABS: HEMATOCRIT 35.4 % (35.4-49); HEMOGLOBIN 11.4 GM/dL (11.7-16.9); MCH 30.1 pg (25.7-33.7); MCHC 32.3 g/dl (32.0-35.9); MEAN CELL VOLUME 93.2 fl (80-96); MEAN PLT VOLUME 10.3 fl (7.5-11.1); PLATELET COUNT 307 10^3/uL (134-434); RDW 15.7 % (11.9-15.9); WHITE BLOOD COUNT 25.5 K/mm3 (4.0-10.0)
[2021-04-06] MEDS ORDERED: FUROSEMIDE 40 MG/4 ML INJECTABLE VIAL IVPUSH ONE (09:08)
[2021-04-06] MEDS: LEVOTHYROXINE SODIUM 100 MCG VIAL IVPUSH SCH (09:39)
[2021-04-06] MEDS: PANTOPRAZOLE SODIUM 40 MG VIAL IVPUSH SCH (09:40)
[2021-04-06] MEDS: CLOPIDOGREL BISULFATE 75 MG TABLET (FP) GT SCH (09:40)
[2021-04-06] MEDS: ASPIRIN 81 MG CHEWABLE TABLETS NGT SCH (09:40)
[2021-04-06] MEDS: DOCUSATE NA 100 MG/10 ML UNIT-DOSE CUPS NGT SCH (09:40)
[2021-04-06] MEDS: DEXAMETHASONE SOD PHOSPHATE 10 MG/1 ML VIAL IVPUSH SCH (09:40)
[2021-04-06] MEDS: ENOXAPARIN NA (PORCINE) 80 MG/0.8 ML DISP.SYRIN SQ SCH ×2 (09:40→21:37)
[2021-04-06] MEDS: POLYETHYLENE GLYCOL (HEALTHYLAX) 3350 17 GM PACKET NGT SCH (09:40)
[2021-04-06] MEDS: AMINO ACIDS/PROTEIN HYDROLYS 30 ML LIQUID.PKT PO SCH ×2 (09:40→17:20)
[2021-04-06 10:33] LABS: ANISOCYTOSIS 2+; MACROCYTOSIS 2+; PLATELET ESTIMATE NORMAL; TOXIC GRANULATION 2+
[2021-04-06 11:30] LABS: BLOOD UREA NITROGEN 49.4 mg/dL (7-18); CREATININE 0.7 mg/dL (0.55-1.3)
[2021-04-06 11:31] LABS: ALBUMIN 1.4 g/dl (3.4-5.0); BILIRUBIN,TOTAL 0.5 mg/dL (0.2-1); CALCIUM 8.2 mg/dL (8.5-10.1); MAGNESIUM 2.4 mg/dL (1.8-2.4); PHOSPHOROUS 2.6 mg/dL (2.5-4.9); TOT PROT 5.2 g/dl (6.4-8.2)
[2021-04-06] MEDS: ATORVASTATIN CA 20 MG TABLET (FP) NGT SCH (21:37)
[2021-04-06] MEDS: CHLORHEXIDINE GLUCONATE 4% CLEANSER FOR DECOLONIZATION TP SCH (21:37)
[2021-04-07] MEDS: CARBIDOPA/LEVODOPA 25/250 TABLET (FP) GT SCH ×3 (05:57→21:49)
[2021-04-07] MEDS: AMINO ACIDS/PROTEIN HYDROLYS 30 ML LIQUID.PKT PO SCH ×2 (07:54→18:04)
[2021-04-07 08:10] LABS: HEMATOCRIT 36.2 % (35.4-49); HEMOGLOBIN 11.8 GM/dL (11.7-16.9); MCH 30.3 pg (25.7-33.7); MCHC 32.7 g/dl (32.0-35.9); MEAN CELL VOLUME 92.9 fl (80-96); MEAN PLT VOLUME 10.4 fl (7.5-11.1); PLATELET COUNT 327 10^3/uL (134-434); RBC 3.89 M/mm3 (4.00-5.60); RDW 15.1 % (11.9-15.9); WHITE BLOOD COUNT 24.9 K/mm3 (4.0-10.0)
[2021-04-07 08:22] LABS: ALBUMIN 1.5 g/dl (3.4-5.0); BLOOD UREA NITROGEN 51.3 mg/dL (7-18); CALCIUM 8.6 mg/dL (8.5-10.1); MAGNESIUM 2.1 mg/dL (1.8-2.4)
[2021-04-07 08:25] LABS: CREATININE 0.8 mg/dL (0.55-1.3); PHOSPHOROUS 3.3 mg/dL (2.5-4.9)
[2021-04-07 08:27] LABS: BILIRUBIN,TOTAL 0.6 mg/dL (0.2-1); TOT PROT 5.5 g/dl (6.4-8.2)
[2021-04-07] MEDS ORDERED: FUROSEMIDE 40 MG/4 ML INJECTABLE VIAL IVPUSH ONE (09:47)
[2021-04-07] MEDS: LEVOTHYROXINE SODIUM 100 MCG VIAL IVPUSH SCH (10:08)
[2021-04-07] MEDS: POLYETHYLENE GLYCOL (HEALTHYLAX) 3350 17 GM PACKET NGT SCH (10:08)
[2021-04-07] MEDS: PANTOPRAZOLE SODIUM 40 MG VIAL IVPUSH SCH (10:08)
[2021-04-07] MEDS: DOCUSATE NA 100 MG/10 ML UNIT-DOSE CUPS NGT SCH (10:08)
[2021-04-07] MEDS: DEXAMETHASONE SOD PHOSPHATE 10 MG/1 ML VIAL IVPUSH SCH (10:08)
[2021-04-07] MEDS: ASPIRIN 81 MG CHEWABLE TABLETS NGT SCH (10:09)
[2021-04-07] MEDS: ENOXAPARIN NA (PORCINE) 80 MG/0.8 ML DISP.SYRIN SQ SCH ×2 (10:09→21:49)
[2021-04-07] MEDS: CLOPIDOGREL BISULFATE 75 MG TABLET (FP) GT SCH (10:09)
[2021-04-07] MEDS: FENTANYL NS IVPB 500 MCG/100 ML BAG IVPB SCH (11:21)
[2021-04-07] MEDS: PROPOFOL 1,000,000 MCG/100 ML VIAL IVPB SCH (18:04)
[2021-04-07] MEDS: CHLORHEXIDINE GLUCONATE 4% CLEANSER FOR DECOLONIZATION TP SCH (21:49)
[2021-04-07] MEDS: ATORVASTATIN CA 20 MG TABLET (FP) NGT SCH (21:49)
[2021-04-08 05:56] LABS: ARTERIAL BLD GAS O2 SATURATION 89.7 % (95-98); ARTERIAL BLOOD GAS BASE EXCESS 6.5 mmol/L (-2-2); ARTERIAL BLOOD GAS pH 7.385 (7.350-7.450)
[2021-04-08 06:05] LABS: ALLENS TEST POSITIVE; VENT MODE A/C; VENT RATE 16
[2021-04-08] MEDS: CARBIDOPA/LEVODOPA 25/250 TABLET (FP) GT SCH ×3 (06:43→21:51)
[2021-04-08 07:53] LABS: HEMATOCRIT 36.1 % (35.4-49); HEMOGLOBIN 11.5 GM/dL (11.7-16.9); MCH 29.7 pg (25.7-33.7); MCHC 31.9 g/dl (32.0-35.9); MEAN PLT VOLUME 10.4 fl (7.5-11.1); PLATELET COUNT 312 10^3/uL (134-434); RBC 3.88 M/mm3 (4.00-5.60); RDW 15.5 % (11.9-15.9); WHITE BLOOD COUNT 22.1 K/mm3 (4.0-10.0)
[2021-04-08 08:11] LABS: CALCIUM 8.6 mg/dL (8.5-10.1)
[2021-04-08 08:12] LABS: BLOOD UREA NITROGEN 57.6 mg/dL (7-18); MAGNESIUM 2.1 mg/dL (1.8-2.4)
[2021-04-08 08:15] LABS: CREATININE 0.7 mg/dL (0.55-1.3); PHOSPHOROUS 3.8 mg/dL (2.5-4.9)
[2021-04-08] MEDS: DEXAMETHASONE SOD PHOSPHATE 10 MG/1 ML VIAL IVPUSH SCH (09:14)
[2021-04-08] MEDS: PANTOPRAZOLE SODIUM 40 MG VIAL IVPUSH SCH (09:14)
[2021-04-08] MEDS: ENOXAPARIN NA (PORCINE) 80 MG/0.8 ML DISP.SYRIN SQ SCH ×2 (09:30→21:51)
[2021-04-08] MEDS: DOCUSATE NA 100 MG/10 ML UNIT-DOSE CUPS NGT SCH (09:30)
[2021-04-08] MEDS: POLYETHYLENE GLYCOL (HEALTHYLAX) 3350 17 GM PACKET NGT SCH (09:30)
[2021-04-08] MEDS: ASPIRIN 81 MG CHEWABLE TABLETS NGT SCH (09:30)
[2021-04-08] MEDS: CLOPIDOGREL BISULFATE 75 MG TABLET (FP) GT SCH (09:30)
[2021-04-08] MEDS: AMINO ACIDS/PROTEIN HYDROLYS 30 ML LIQUID.PKT PO SCH ×2 (09:30→18:30)
[2021-04-08] MEDS ORDERED: ROCURONIUM BROMIDE 50 MG/5 ML VIAL IV ONE (09:58)
[2021-04-08] MEDS: FENTANYL NS IVPB 500 MCG/100 ML BAG IVPB SCH ×2 (10:04→21:52)
[2021-04-08] MEDS: LEVOTHYROXINE SODIUM 100 MCG VIAL IVPUSH SCH (10:08)
[2021-04-08] MEDS: ROCURONIUM BROMIDE 500 MG/300 ML BAG IVPB SCH ×2 (10:22→21:25)
[2021-04-08 11:43] LABS: ALLENS TEST POSITIVE; ARTERIAL BLD GAS O2 SATURATION 84.8 % (95-98); ARTERIAL BLOOD GAS BASE EXCESS 6.7 mmol/L (-2-2); ARTERIAL BLOOD GAS PO2 52.1 mmHg (80-100); ARTERIAL BLOOD GAS pH 7.366 (7.350-7.450)
[2021-04-08 11:44] LABS: VENT RATE 32
[2021-04-08] MEDS ORDERED: FUROSEMIDE 40 MG/4 ML INJECTABLE VIAL IVPUSH ONE (12:34)
[2021-04-08] MEDS: PROPOFOL 1,000,000 MCG/100 ML VIAL IVPB SCH (18:45)
[2021-04-08] MEDS: CHLORHEXIDINE GLUCONATE 4% CLEANSER FOR DECOLONIZATION TP SCH (21:50)
[2021-04-08] MEDS: ATORVASTATIN CA 20 MG TABLET (FP) NGT SCH (21:51)
[2021-04-09] MEDS: FENTANYL NS IVPB 500 MCG/100 ML BAG IVPB SCH ×3 (02:31→21:23)
[2021-04-09] MEDS: PROPOFOL 1,000,000 MCG/100 ML VIAL IVPB SCH ×3 (02:32→19:35)
[2021-04-09] MEDS: CARBIDOPA/LEVODOPA 25/250 TABLET (FP) GT SCH ×3 (06:35→21:24)
[2021-04-09 07:12] LABS: HEMATOCRIT 34.3 % (35.4-49); HEMOGLOBIN 10.9 GM/dL (11.7-16.9); MCH 29.4 pg (25.7-33.7); MCHC 31.7 g/dl (32.0-35.9); MEAN CELL VOLUME 92.6 fl (80-96); MEAN PLT VOLUME 10.3 fl (7.5-11.1); PLATELET COUNT 291 10^3/uL (134-434); RBC 3.71 M/mm3 (4.00-5.60)
[2021-04-09 07:28] LABS: WHITE BLOOD COUNT 28.4 K/mm3 (4.0-10.0)
[2021-04-09 07:44] LABS: CALCIUM 8.5 mg/dL (8.5-10.1)
[2021-04-09 07:45] LABS: ALBUMIN 1.4 g/dl (3.4-5.0); BLOOD UREA NITROGEN 68.3 mg/dL (7-18); MAGNESIUM 2.2 mg/dL (1.8-2.4)
[2021-04-09 07:47] LABS: CREATININE 0.8 mg/dL (0.55-1.3); PHOSPHOROUS 4.5 mg/dL (2.5-4.9)
[2021-04-09 07:49] LABS: BILIRUBIN,TOTAL 0.7 mg/dL (0.2-1); TOT PROT 5.5 g/dl (6.4-8.2)
[2021-04-09 09:47] LABS: ANISOCYTOSIS 0; MACROCYTOSIS 0; PLATELET ESTIMATE NORMAL
[2021-04-09] MEDS: ENOXAPARIN NA (PORCINE) 80 MG/0.8 ML DISP.SYRIN SQ SCH ×2 (10:43→21:24)
[2021-04-09] MEDS: AMINO ACIDS/PROTEIN HYDROLYS 30 ML LIQUID.PKT PO SCH ×2 (10:43→16:49)
[2021-04-09] MEDS: ASPIRIN 81 MG CHEWABLE TABLETS NGT SCH (10:43)
[2021-04-09] MEDS: LEVOTHYROXINE SODIUM 100 MCG VIAL IVPUSH SCH (10:49)
[2021-04-09] MEDS: PANTOPRAZOLE SODIUM 40 MG VIAL IVPUSH SCH (10:50)
[2021-04-09] MEDS: DOCUSATE NA 100 MG/10 ML UNIT-DOSE CUPS NGT SCH (10:50)
[2021-04-09] MEDS: CLOPIDOGREL BISULFATE 75 MG TABLET (FP) GT SCH (11:02)
[2021-04-09] MEDS: POLYETHYLENE GLYCOL (HEALTHYLAX) 3350 17 GM PACKET NGT SCH (11:03)
[2021-04-09] MEDS: ATORVASTATIN CA 20 MG TABLET (FP) NGT SCH (21:24)
[2021-04-09] MEDS: CHLORHEXIDINE GLUCONATE 4% CLEANSER FOR DECOLONIZATION TP SCH (21:24)
[2021-04-10] MEDS: FENTANYL NS IVPB 500 MCG/100 ML BAG IVPB SCH ×2 (01:40→09:56)
[2021-04-10] MEDS: ROCURONIUM BROMIDE 500 MG/300 ML BAG IVPB SCH (05:03)
[2021-04-10] MEDS: PROPOFOL 1,000,000 MCG/100 ML VIAL IVPB SCH ×2 (05:04→14:20)
[2021-04-10] MEDS: CARBIDOPA/LEVODOPA 25/250 TABLET (FP) GT SCH ×3 (05:05→21:23)
[2021-04-10 07:33] LABS: HEMATOCRIT 30.2 % (35.4-49); HEMOGLOBIN 9.8 GM/dL (11.7-16.9); MCH 30.2 pg (25.7-33.7); MCHC 32.3 g/dl (32.0-35.9); MEAN CELL VOLUME 93.3 fl (80-96); PLATELET COUNT 320 10^3/uL (134-434); RBC 3.23 M/mm3 (4.00-5.60); RDW 15.3 % (11.9-15.9); WHITE BLOOD COUNT 28.8 K/mm3 (4.0-10.0)
[2021-04-10 08:24] LABS: ALBUMIN 1.3 g/dl (3.4-5.0); BILIRUBIN,TOTAL 0.6 mg/dL (0.2-1); BLOOD UREA NITROGEN 84.6 mg/dL (7-18); CREATININE 1.3 mg/dL (0.55-1.3); MAGNESIUM 2.5 mg/dL (1.8-2.4); PHOSPHOROUS 6.1 mg/dL (2.5-4.9); TOT PROT 5.2 g/dl (6.4-8.2)
[2021-04-10 09:19] LABS: ANISOCYTOSIS 0; MACROCYTOSIS 0; PLATELET ESTIMATE NORMAL; TARGET CELLS 1+
[2021-04-10] MEDS: AMINO ACIDS/PROTEIN HYDROLYS 30 ML LIQUID.PKT PO SCH (09:54)
[2021-04-10] MEDS: ENOXAPARIN NA (PORCINE) 80 MG/0.8 ML DISP.SYRIN SQ SCH ×2 (09:54→21:23)
[2021-04-10] MEDS: ASPIRIN 81 MG CHEWABLE TABLETS NGT SCH (09:55)
[2021-04-10] MEDS: CLOPIDOGREL BISULFATE 75 MG TABLET (FP) GT SCH (09:55)
[2021-04-10] MEDS: PANTOPRAZOLE SODIUM 40 MG VIAL IVPUSH SCH (09:55)
[2021-04-10] MEDS: POLYETHYLENE GLYCOL (HEALTHYLAX) 3350 17 GM PACKET NGT SCH (09:55)
[2021-04-10] MEDS: DOCUSATE NA 100 MG/10 ML UNIT-DOSE CUPS NGT SCH (09:55)
[2021-04-10] MEDS: LEVOTHYROXINE SODIUM 100 MCG VIAL IVPUSH SCH (10:02)
[2021-04-10] MEDS ORDERED: SODIUM CHLORIDE 1,000 ML IV SCH (11:15)
[2021-04-10] MEDS: DEXAMETHASONE SOD PHOSPHATE 10 MG/1 ML VIAL IVPUSH SCH (13:26)
[2021-04-10] MEDS: BARICITINIB 2 MG TABLET GT SCH (14:23)
[2021-04-10] MEDS: SODIUM ZIRCONIUM CYCLOSILICATE (LOKELMA) 5 GM PACKET PO SCH (16:06)
[2021-04-10] MEDS: CHLORHEXIDINE GLUCONATE 4% CLEANSER FOR DECOLONIZATION TP SCH (21:23)
[2021-04-10] MEDS: ATORVASTATIN CA 20 MG TABLET (FP) NGT SCH (21:23)
[2021-04-10] MEDS ORDERED: VASOPRESSIN 40 UNITS/100 ML BAG IV SCH ×2 (21:30→23:15)
[2021-04-11] MEDS: FENTANYL NS IVPB 500 MCG/100 ML BAG IVPB SCH ×3 (01:59→13:30)
[2021-04-11] MEDS: PROPOFOL 1,000,000 MCG/100 ML VIAL IVPB SCH ×2 (02:00→08:12)
[2021-04-11] MEDS: CARBIDOPA/LEVODOPA 25/250 TABLET (FP) GT SCH ×2 (06:17→14:15)
[2021-04-11 08:12] LABS: HEMATOCRIT 26.6 % (35.4-49); HEMOGLOBIN 8.4 GM/dL (11.7-16.9); MCH 29.8 pg (25.7-33.7); MCHC 31.4 g/dl (32.0-35.9); MEAN CELL VOLUME 94.8 fl (80-96); MEAN PLT VOLUME 10.5 fl (7.5-11.1); PLATELET COUNT 302 10^3/uL (134-434); RBC 2.81 M/mm3 (4.00-5.60); RDW 15.2 % (11.9-15.9); WHITE BLOOD COUNT 26.8 K/mm3 (4.0-10.0)
[2021-04-11 08:43] LABS: CHLORIDE 100 mmol/L (98-107); SODIUM 137 mmol/L (136-145)
[2021-04-11 08:46] LABS: CALCIUM 8.1 mg/dL (8.5-10.1)
[2021-04-11 08:48] LABS: ALBUMIN 1.2 g/dl (3.4-5.0); ANION GAP 8 MMOL/L (8-16); CO2 29 mmol/L (21-32); GLUCOSE,RANDOM 180 mg/dL (74-106); MAGNESIUM 2.8 mg/dL (1.8-2.4)
[2021-04-11 08:51] LABS: BILIRUBIN,TOTAL 0.5 mg/dL (0.2-1); CREATININE 1.6 mg/dL (0.55-1.3); PHOSPHOROUS 6.2 mg/dL (2.5-4.9); SGOT/AST 48 U/L (15-37); SGPT/ALT 16 U/L (13-61); TOT PROT 4.9 g/dl (6.4-8.2)
[2021-04-11 08:53] LABS: ALK PHOS 141 U/L (45-117); BLOOD UREA NITROGEN 110.2 mg/dL (7-18)
[2021-04-11 09:07] LABS: ANISOCYTOSIS 0; HELMET CELLS 0; HOWELL-JOLLY BODIES 0; MACROCYTOSIS 0; OVALOCYTE 0; PLATELET ESTIMATE NORMAL; ROULEAU 0; SICKELED CELLS 0; TARGET CELLS 0; TEAR DROP CELLS 0; TOXIC GRANULATION 0
[2021-04-11] MEDS ORDERED: VANCOMYCIN/WATER 1,250 MG/250 ML BAG IVPB ONE (10:30)
[2021-04-11] MEDS ORDERED: DEXTROSE 50%-WATER - 25 GM/50 ML VIAL IVPUSH ONE (10:33)
[2021-04-11] MEDS ORDERED: SODIUM BICARBONATE 8.4% 50 MEQ/50 ML VIAL IVPUSH ONE (10:33)
[2021-04-11] MEDS ORDERED: CALCIUM GLUCONATE 10% - 1,000 MG/10 ML VIAL IVPUSH ONE (10:34)
[2021-04-11] MEDS ORDERED: INSULIN REGULAR HUMAN 100 UNITS/ML *VIAL IVPUSH ONE (10:34)
[2021-04-11] MEDS: AMINO ACIDS/PROTEIN HYDROLYS 30 ML LIQUID.PKT PO SCH (10:49)
[2021-04-11] MEDS: POLYETHYLENE GLYCOL (HEALTHYLAX) 3350 17 GM PACKET NGT SCH (10:49)
[2021-04-11] MEDS: DOCUSATE NA 100 MG/10 ML UNIT-DOSE CUPS NGT SCH (10:49)
[2021-04-11] MEDS: SODIUM ZIRCONIUM CYCLOSILICATE (LOKELMA) 5 GM PACKET PO SCH (10:50)
[2021-04-11] MEDS: PANTOPRAZOLE SODIUM 40 MG VIAL IVPUSH SCH (10:50)
[2021-04-11] MEDS: LEVOTHYROXINE SODIUM 100 MCG VIAL IVPUSH SCH (10:50)
[2021-04-11] MEDS ORDERED: VANCOMYCIN/WATER BAGS 1,250 MG/250 ML BAG IVPB ONE (11:00)
[2021-04-11] MEDS ORDERED: DEXTROSE 50%-WATER - 25 GM/50 ML VIAL ONE (11:14)
[2021-04-11] MEDS: ASPIRIN 81 MG CHEWABLE TABLETS NGT SCH (11:15)
[2021-04-11] MEDS: ENOXAPARIN NA (PORCINE) 80 MG/0.8 ML DISP.SYRIN SQ SCH (11:15)
[2021-04-11] MEDS: CLOPIDOGREL BISULFATE 75 MG TABLET (FP) GT SCH (11:15)
[2021-04-11] MEDS ORDERED: SODIUM CHLORIDE 500 ML IV STA (11:42)
[2021-04-11] MEDS ORDERED: SODIUM CHLORIDE 1,000 ML IV SCH (11:45)
[2021-04-11] MEDS: BARICITINIB 2 MG TABLET GT SCH (11:48)
[2021-04-11] MEDS: ROCURONIUM BROMIDE 500 MG/300 ML BAG IVPB SCH (11:59)
[2021-04-11] MEDS ORDERED: NOREPINEPHRINE BITARTRATE 4 MG/4 ML ML IV ONE (12:05)
[2021-04-11] MEDS ORDERED: NOREPINEPHRINE BITARTRATE 16,000 MCG in SODIUM CHLORIDE 484 ML IV SCH (12:15)
[2021-04-11] MEDS ORDERED: DOPAMINE 400 MG/D5W - 400,000 MCG/250 ML INFUS.BAG IVPB SCH (12:30)
[2021-04-11] MEDS: DEXAMETHASONE SOD PHOSPHATE 10 MG/1 ML VIAL IVPUSH SCH (12:31)
[2021-04-11 14:02] LABS: HEMATOCRIT 26.2 % (35.4-49); HEMOGLOBIN 8.1 GM/dL (11.7-16.9); MCH 29.7 pg (25.7-33.7); MCHC 30.9 g/dl (32.0-35.9); MEAN CELL VOLUME 96.1 fl (80-96); MEAN PLT VOLUME 10.6 fl (7.5-11.1); PLATELET COUNT 289 10^3/uL (134-434); RBC 2.72 M/mm3 (4.00-5.60); RDW 15.1 % (11.9-15.9); WHITE BLOOD COUNT 28.2 K/mm3 (4.0-10.0)
[2021-04-11 14:43] LABS: CHLORIDE 100 mmol/L (98-107); SODIUM 138 mmol/L (136-145)
[2021-04-11 14:45] LABS: CALCIUM 7.7 mg/dL (8.5-10.1); CO2 25 mmol/L (21-32); GLUCOSE,RANDOM 195 mg/dL (74-106)
[2021-04-11 14:48] LABS: CREATININE 1.6 mg/dL (0.55-1.3)
[2021-04-11 14:52] LABS: ANION GAP 13 MMOL/L (8-16); BLOOD UREA NITROGEN 112.3 mg/dL (7-18)
[2021-04-11 15:26] VITALS: BP 75/31; PULSE 106; TEMP 98.1
== END 2021-04-11 15:58 | disposition expired | DRG 720 ==
LOC: JER 21:21 → JERBED 03-28 00:32 → JICU 03-28 05:47
PROVIDERS: ADMIT Internal Medicine Pulmonary Disease; ATTEND Internal Medicine Pulmonary Disease
PROC: 5A1955Z Respiratory Ventilation, Greater than 96 Consecutive Hours (ICD-10-PCS; principal; 2021-03-28)
PROC: 0BH17EZ Insertion of Endotracheal Airway into Trachea, Via Natural or Artificial Opening (ICD-10-PCS; 2021-03-28)
PROC: 05HM33Z Insertion of Infusion Device into Right Internal Jugular Vein, Percutaneous Approach (ICD-10-PCS; 2021-03-28)
PROC: 3E0333Z Introduction of Anti-inflammatory into Peripheral Vein, Percutaneous Approach (ICD-10-PCS; 2021-03-28)
PROC: XW033E5 Introduction of Remdesivir Anti-infective into Peripheral Vein, Percutaneous Approach, New Technology Group 5 (ICD-10-PCS; 2021-03-28)
PROC: 5A12012 Performance of Cardiac Output, Single, Manual (ICD-10-PCS; 2021-03-28)
DX: A41.89 Other specified sepsis (principal); G20 Parkinson's disease; I46.9 Cardiac arrest, cause unspecified; J96.01 Acute respiratory failure with hypoxia; E87.2 Acidosis; R65.21 Severe sepsis with septic shock; I21.4 Non-ST elevation (NSTEMI) myocardial infarction; N17.9 Acute kidney failure, unspecified; U07.1 COVID-19; J12.82 Pneumonia due to coronavirus disease 2019; E03.9 Hypothyroidism, unspecified; E78.00 Pure hypercholesterolemia, unspecified; E87.5 Hyperkalemia; I25.10 Atherosclerotic heart disease of native coronary artery without angina pectoris; I10 Essential (primary) hypertension; E78.5 Hyperlipidemia, unspecified; I48.0 Paroxysmal atrial fibrillation; I95.9 Hypotension, unspecified
CPT/HCPCS: 36415; 36600; 71045-TC-FY; 80048; 80053; 81003; 82248; 82272; 82550; 82553; 82728; 82803; 83605; 83615; 83735; 83880; 84100; 84439; 84443; 84480; 84484; 85025; 85027; 85610; 85730; 86140; 86480; 86705; 86707; 87040; 87070; 87086; 87186; 87205; 87340; 87350; 87389; 87517; 87522; 87804; 93005; 93010; 93306-TC; 94002; 99285-25; C9399; C9803; G0480; J1100; J1644; J3490; P9047; U0003; U0005